=== PATIENT | male | born 1935 | race Caucasian/White ===

== ENCOUNTER 2016-11-10 08:29 | Inpatient (IN) ==
[2016-11-10 11:13] VITALS: BMI 31.4
[2016-11-10] MEDS ORDERED: REFRESH CLASSIC Eye Drops 0.4ml EACH EYE PRN ×2 (11:26→13:00)
--- NOTE | 2016-11-10 11:34 | IRU History & Physical Report ---
HPI U Date: Chief complaint: My ribs and shoulder hurt HPI: Mr. Choe is a very nice 81-year-old male who was transferred from [facility] today to the acute inpatient rehabilitation unit. History is obtained predominantly from the patient and secondarily from the patient's son and daughter who are with him during the interview and examination. Patient was working in a grain bin on 11/08/2016 at his home. He apparently was on a ladder about 3 steps up although does not actually recall being on the ladder. The next thing he recalls is sitting in a chair. Apparently he had called his son on his cell phone but does not actually recall that phone call. The son confirms that he received a call from the patient in this regard. Son came to check on him and it was noted that the ladder had twisted and had made some hinton at the top of the area where it was touching the grain bin. Pratt was that the patient had fallen from a ladder landing on the floor or possibly on an auger. The patient did not recall what happened. He was quite confused and asking repeated questions. His son transported him to the emergency department at [facility] where multiple radiographs and CT scans were obtained. CT of the head was unremarkable. CT of cervical spine showed no abnormalities within the cervical spine. CT chest demonstrated a distal comminuted right clavicular fracture, as well as displaced fractures of the right third, fourth, fifth and sixth ribs. There were also T6 and T7 transverse process fractures. There was some surrounding subcutaneous emphysema and a hemothorax. Because of multiple trauma, the patient was transferred to [facility] where he was admitted to the trauma service by Dr. Delatorre. At that location he was stabilized. Lab work was remarkable for a reported sodium down to 129 (per patient's daughter who is a nurse). Hemoglobin was around 12.6 and creatinine was 0.9. He was evaluated by physical therapy and occupational therapy and recommendation was made for acute rehabilitation in view of his high risk of pulmonary decline, pneumonia as well as for pain management. Other symptoms that the patient currently complains of include severe anorexia over the last couple of days as well as constipation. The patient requests no heroic efforts be undertaken in the event of a cardiac or pulmonary arrest. He does not want any CPR nor intubation. His daughter and son were present when this was discussed with the patient as well. With regard to the initial event, patient was asking repeated questions at the time of the transportation to [facility]. He complained of a headache. He did sustain a laceration to the right scalp area. The patient also displayed retrograde amnesia. However by that evening according to his daughter he was fairly well cleared up mentally speaking. While he has had some falls over the last several months these have all been explainable by tripping over something. He has never had an episode of syncope before. He has never had a heart problem and does not have history of seizures. He was not incontinent of urine. At home he lives with his daughter who lives in the basement. The patient's in April of this year from lung cancer. Patient continues to work as a jj. He is extremely active. He is very motivated to recover from this and get back home to independent living. Prior to admission he was totally independent with ADLs, ambulation etc. The following medical conditions are noted and require physician monitoring and treatment. 1. Acute fractures of right clavicle, right ribs 3-6, transverse processes of T6 and T7. These place him at high risk for acute respiratory failure, pneumonia or pneumothorax. 2. Hemothorax: This places him at risk for respiratory failure, anemia, dyspnea or lung infection/pleural fluid infection. 3. Multiple trauma: This places him at high risk for uncontrolled pain which would hinder his therapies and recovery. 4. Anorexia: Risk of malnutrition and thus infection. 5. Hyponatremia at 129 -->132. Risk of SIADH and thus risk of cognitive dysfunction. 6. Constipation: In view of his pain as well as the pain medication, he is having constipation and would be at risk for further GI problems. The following therapies will be needed: 1. Physical therapy: for transfers and ambulation and stairs. 2. Occupational therapy: for ADL's and transfers. 3. Dietitian: To assist with appropriate food choices and maintenance of adequate nutrition. 4. Medical management: for the above conditions. 5. 24 hour Rehabilitation Nursing to monitor and address the following: Monitoring cognitive function in view of recent head trauma, pulmonary status, vital signs and adequate control of pain. Review of Systems - Constitutional Constitutional: Present: anorexia, fatigue, weakness - EENMT Eyes: Absent: blurry vision, change in vision - Cardiovascular Cardiovascular: Present: syncope. Absent: chest pain, palpitations, dyspnea on exertion, orthopnea Rhythm: Present: regular rhythm Vascular: Absent: intermittent claudication - Respiratory Respiratory: Present: cough, dyspnea, dyspnea on exertion, pain on inspiration. Absent: hemoptysis - Gastrointestinal Gastrointestinal: Present: change in bowel habits, constipation, nausea. Absent : abdominal pain - Genitourinary Genitourinary: Present: difficulty urinating - Musculoskeletal Musculoskeletal: Absent: abnormal gait - Integumentary/Breasts Integumentary: Absent: alopecia - Neurological Neurological: Present: confusion, frequent falls, headache(s). Absent: abnormal gait, abnormal movements, abnormal speech, focal weakness - Psychiatric Psychiatric: Absent: anxiety, depression [facility] Patient Stated Medical History Constipation No Hx Incontinence Yes Clinic Medical History (Last Reviewed 10/18/16 @ 18:52 by Nila Egan CNA) GERD (gastroesophageal reflux disease) (Acute Medical) Hyperlipemia (Acute Medical) Medical History Updates: 1. Gastroesophageal reflux disease for which he takes omeprazole. 2. Hyperlipidemiaon atorvastatin. 3. BPH Surgical History: 1. Tubes in both ear within the last 5 years. 2. Hernia repaired and groin in 1989. 3. Lump discovered on colonoscopybenign and removed about 10-15 years ago. 4. Appendectomy. 5. Left fourth finger laceration and near amputation with full healing. Family History: Father of prostate cancer. Mother at age 98 from heart failure. - Social History Smoking status: Never smoker second hand exposure: No Substance use type: does not use Alcohol intake: never Alcohol intake frequency: does not drink Current occupational status: other (Jj) Does patient use chewing tobacco?: No Current residence: Apartment/Private Home Social history: in April of this year from lung cancer. Daughter lives in the basement currently and drives to [place] to work. Patient is otherwise totally independent and able to care for himself at home. Medications Home Medications Medication Instructions Recorded Confirmed Type Vitamin E 400 unit PO DAILY #0 04/25/10 11/10/16 History Atorvastatin Calcium 10 mg PO HS #0 09/20/15 11/10/16 History Omeprazole 20 mg PO DAILY #90 09/20/15 11/10/16 History Aspirin [Ecotrin] 81 mg PO DAILY 11/08/16 11/10/16 History Finasteride [Proscar] 5 mg PO DAILY 11/08/16 11/10/16 History Acetaminophen 2 tab PO Q4H 11/10/16 11/10/16 History Docusate Sodium [Colace] 1 cap PO BID 11/10/16 11/10/16 History Lidocaine 5% Patch [Lidoderm] 2 patch TRANSDERMA DAILY 11/10/16 11/10/16 History Magnesium Oxide [Magnesium] 1 tab PO BID 11/10/16 11/10/16 History Oxycodone *Ir* [Roxicodone *Ir*] 5 mg PO Q4HPRN PRN 11/10/16 11/10/16 History Refresh Classic 1 drop EACH EYE QIDPRN PRN 11/10/16 11/10/16 History Triamcinolone 0.1% Cream 15 G 1 applic TOP QIDPRN 11/10/16 11/10/16 History Allergies Allergy/AdvReac Type Severity Reaction Status Date / Time No Known Allergies Allergy Verified 11/08/16 14:51 Results IRU - Labs Labs: Outside labs reviewed. Sodium 132. Reportedly 129 previously. Hemoglobin around 12.5. Also reviewed recent CT scans of cervical spine, head and chest. Exam Vital Signs: Temperature 98.0 F 11/10/16 10:22 Pulse Rate 77 11/10/16 10:22 Respiratory Rate 18 11/10/16 10:22 Blood Pressure 149/72 H 11/10/16 10:22 Pulse Oximetry 94 11/10/16 10:22 Oxygen Delivery Method Room Air Height/Weight/BMI: Height 1.78 m Weight 99.2 kg Body Mass Index 31.4 - Constitutional Present: moderate distress - Routine HEENT Exam Head: Present: normocephalic, laceration (sutured laceration right lateral scalp noninflamed 3 simple sutures.). Absent: atraumatic Eye: Present: EOMI, PERRL. Absent: scleral injection ENT: Present: mucous membranes moist - Routine Neck Exam Present: supple, full ROM - Routine Respiratory Exam Present: CTA bilaterally. Absent: accessory muscle use, dyspnea, decreased breath sounds, rhonchi, wheezes - Routine Cardiovascular Exam Present: RRR, S1, S2, no murmur - Routine Abdominal Exam Present: soft, normoactive bowel sounds, non distended, non tender - Routine Extremities Exam Present: no edema, non tender. Absent: cyanosis - Routine Back/Spine/Pelvis Exam Back/Spine: Present: full ROM - Routine Skin Exam Absent: intact, erythema - Routine Neurological Exam Present: alert, oriented X3, CN II-XII intact. Absent: sensory deficit, motor deficit - Routine Psychiatric Exam Present: normal affect, normal thought process, cooperative, good insight, good judgment. Absent: depressed, anxious Sepsis Assessment - Evaluation Sepsis screening result: No Definite Risk IRU A/P (1) Multiple fractures of rib involving four or more ribs Current visit: Yes Status: Acute We will provide pain management, close medical observation and nursing observation for respiratory failure, dyspnea, pneumonia. (2) Closed right clavicular fracture Qualifiers: Encounter type: subsequent encounter Current visit: Yes Status: Acute Has significant pain in the right clavicle. Reduced range of motion for the right shoulder is recommended. (3) Multiple transverse process fractures Current visit: Yes Status: Acute This is of recent onset secondary to his fall. Pain relief will be provided. (4) BPH (benign prostatic hyperplasia) Qualifiers: Lower urinary tract symptom presence: symptoms present Lower urinary tract symptom detail: nocturia Qualified Code(s): N40.1 - Benign prostatic hyperplasia with lower urinary tract symptoms; R35.1 - Nocturia Current visit: Yes Status: Acute Patient is on medication for this. With use of pain medications he is at risk for urinary retention. (5) Hyperlipidemia Qualifiers: Hyperlipidemia type: unspecified Qualified Code(s): E78.5 - Hyperlipidemia , unspecified Current visit: Yes Status: Acute He remains on atorvastatin. (6) Hemothorax, traumatic Qualifiers: Encounter type: subsequent encounter Qualified Code(s): S27.1XXD - Traumatic hemothorax, subsequent encounter Current visit: Yes Status: Acute Patient was noted to have traumatic hemothorax on CT scan of the chest. This is some dyspnea with activity. He is at risk for infection in this area as well as further bleeding in view of his multiple fractures. DVT Prophylaxis: SCD's, Lovenox GI Prophylaxis: Protonix Resuscitation Status: Do Not Resuscitate - Course Hospital Course: Jayme Quinn MD: - Interventions to Obtain Goals PT Treatment Plan: Functional Activities, Gait Training OT Treatment Plan: ADL (Basic Care), IADL Goals Progress/Modifications: Patient is a good candidate for inpatient acute rehabilitation. It is anticipated he will have full functional recovery and be able to return home independently.
--- NOTE | 2016-11-10 12:13 | IRU 24Hr Post Admit Eval ---
24 Hr Post Admission Physical - Relevant Changes Relevant Changes: No Reviewed: I have reviewed the patient's information and concur with the finding and results of the pre-admission screen. Certification: I certify the patient for rehabilitation. - Patient Condition (1) Multiple fractures of rib involving four or more ribs Status: Acute Code(s): S22.49XA - Multiple fractures of ribs, unspecified side , initial encounter for closed fracture Classification: Present on IRF Admission, IRF Tx That Should Address Diagnosis, Diagnosis Requiring Medical Follow Up (2) Closed right clavicular fracture Status: Acute Qualifiers: Encounter type: subsequent encounter Code(s): S42.001A - Fracture of unspecified part of right clavicle, initial encounter for closed fracture Classification: Present on IRF Admission, IRF Tx That Should Address Diagnosis, Diagnosis Requiring Medical Follow Up (3) Multiple transverse process fractures Status: Acute Classification: Present on IRF Admission, Diagnosis Requiring Medical Follow Up (4) BPH (benign prostatic hyperplasia) Status: Acute Qualifiers: Lower urinary tract symptom presence: symptoms present Lower urinary tract symptom detail: nocturia Qualified Code(s): N40.1 - Benign prostatic hyperplasia with lower urinary tract symptoms; R35.1 - Nocturia Code(s): N40.0 - Benign prostatic hyperplasia without lower urinary tract symptoms Classification: Present on IRF Admission, Diagnosis Requiring Medical Follow Up (5) Hyperlipidemia Status: Acute Qualifiers: Hyperlipidemia type: unspecified Qualified Code(s): E78.5 - Hyperlipidemia , unspecified Code(s): E78.5 - Hyperlipidemia, unspecified Classification: Present on IRF Admission, Diagnosis Requiring Medical Follow Up (6) Hemothorax, traumatic Status: Acute Qualifiers: Encounter type: subsequent encounter Qualified Code(s): S27.1XXD - Traumatic hemothorax, subsequent encounter Code(s): S27.1XXA - Traumatic hemothorax, initial encounter Classification: Present on IRF Admission, IRF Tx That Should Address Diagnosis, Diagnosis Requiring Medical Follow Up - Prior Functional Status Lives With: Other (Daugter lives in basement. Patient is independent at home) Residence Type: Apartment/Private Home Assitive Devices: None Prior Functional Status: Indep. at home or school, Used no assistive device - Current Functional Status Failed Alternative Therapy: Arrived from Acute Care Patient Requirements: The patient requires oversight by rehabilitation physician to manage their rehabilitation treatment plan and multidisciplinary approach to care that can only be provided in an IRF and requires a multidisciplinary approach to care, provided by professional PTs, OTs, STs, dieticians, RTs, rehabilitation nurses and is not available in lesser levels of care. Limitiations Req: ADL Impairment Physical Therapy Minutes: 90 Occupational Therapy Minutes: 90 Therapy: The patient is to receive therapy at least 5 days a week. ROM Deficit: Right Upper Extremity - Complications/Comorbidities Impact on Functional Outcomes: Severe pain in the right clavicle and right ribs will impact his therapy. Dyspnea with activity also may be an impact on his functional recovery. Barriers to Discharge: Pain Control, Medical Limitation - Plan to Avoid Complications Plan to Avoid Complications: The patient cannot receive this care in a lesser intensive setting such as [facility] or Outpatient Therapy due to the patient requiring the following : He requires 24-hour nursing monitoring as well as medical management of his multiple rib fracture pain, clavicular pain, hemothorax which places him at risk for acute respiratory failure, infection or pneumonia.
--- NOTE | 2016-11-10 12:16 | IRU Plan of Care ---
[facility] Overall Plan of Care - Date Date: 11/10/16 - Patient Impairments (1) Multiple fractures of rib involving four or more ribs Code(s): S22.49XA - Multiple fractures of ribs, unspecified side, initial encounter for closed fracture Status: Acute Classification: Present on IRF Admission, IRF Tx That Should Address Diagnosis, Diagnosis Requiring Medical Follow Up (2) Closed right clavicular fracture Qualifiers: Encounter type: subsequent encounter Code(s): S42.001A - Fracture of unspecified part of right clavicle, initial encounter for closed fracture Status: Acute Classification: Present on IRF Admission, IRF Tx That Should Address Diagnosis, Diagnosis Requiring Medical Follow Up (3) Multiple transverse process fractures Status: Acute Classification: Present on IRF Admission, Diagnosis Requiring Medical Follow Up (4) BPH (benign prostatic hyperplasia) Qualifiers: Lower urinary tract symptom presence: symptoms present Lower urinary tract symptom detail: nocturia Qualified Code(s): N40.1 - Benign prostatic hyperplasia with lower urinary tract symptoms; R35.1 - Nocturia Code(s): N40.0 - Benign prostatic hyperplasia without lower urinary tract symptoms Status: Acute Classification: Present on IRF Admission, Diagnosis Requiring Medical Follow Up (5) Hyperlipidemia Qualifiers: Hyperlipidemia type: unspecified Qualified Code(s): E78.5 - Hyperlipidemia , unspecified Code(s): E78.5 - Hyperlipidemia, unspecified Status: Acute Classification: Present on IRF Admission, Diagnosis Requiring Medical Follow Up (6) Hemothorax, traumatic Qualifiers: Encounter type: subsequent encounter Qualified Code(s): S27.1XXD - Traumatic hemothorax, subsequent encounter Code(s): S27.1XXA - Traumatic hemothorax, initial encounter Status: Acute Classification: Present on IRF Admission, IRF Tx That Should Address Diagnosis, Diagnosis Requiring Medical Follow Up - Relevant Changes Relevant Changes: No Reviewed: I have reviewed the patient's information and concur with the finding and results of the pre-admission screen. Certification: I certify the patient for rehabilitation. - Medical Prognosis Medical Prognosis: Good Vital Signs: Last Vital Signs Temp 98.0 F 11/10/16 10:22 Pulse 77 11/10/16 10:22 Resp 18 11/10/16 10:22 BP 149/72 H 11/10/16 10:22 Pulse Ox 94 11/10/16 10:22 - Anticipated Interventions Anticipated Interventions: The patient requires inpatient IRF care for PT, OT, and/or ST for residuals remaining from multiple trauma including 4 rib fractures, right clavicular comminuted fracture and two spinous process fractures resulting in muscular weakness and strength deficits. ROM Deficit: Right Upper Extremity Strength Deficits: Right Upper Extremity - Current Functional Status Failed Alternative Therapy: Arrived from Acute Care Patient Requires: The patient requires oversight by rehabilitation physician to manage their rehabilitation treatment plan and multidisciplinary approach to care that can only be provided in an IRF and requires a multidisciplinary approach to care, provided by professional PTs, OTs, STs, dieticians, RTs, rehabilitation nurses and is not available in lesser levels of care. Physical Therapy Minutes: 90 Occupational Therapy Minutes: 90 Therapy: The patient is to receive therapy at least 5 days a week. - Anticipated LOS/Outcomes Anticipated Functional Outcome: It is anticipated the patient will have full functional recovery and be independent with all ADLs at home. There is the possibility that he will require some assistance with upper extremity dressing until range of motion can be improved with fracture healing. Anticipated Length of Stay: 7 Anticipated DC Destination: Home, Self Longterm Safety Plan: The patient will be provided with the development of a Home Safety Plan for return to a home or home-like environment and and to ensure safety post discharge. - Plan to Avoid Complications Barriers to Attaining Goals: Weakness, Endurance, Pain Control Plan to Avoid Complications: The patient cannot receive this care in a lesser intensive setting such as [facility] or Outpatient Therapy due to the patient requiring the following : He requires 24-hour nursing monitoring as well as medical management of his multiple rib fracture pain, clavicular pain, hemothorax which places him at risk for acute respiratory failure, infection or pneumonia. .
[2016-11-10] MEDS: ACETAMINOPHEN 325 MG TABLET PO SCH ×2 (14:10→22:06)
--- NOTE | 2016-11-10 14:33 | Consult Note ---
<Isis Alvarez Treva - Last Filed: 11/10/16 14:29> Consult Information - Data of Consult Patient: new to practice Consult date: 11/10/16 Requesting Physician: Jayme Quinn MD Primary Care Provider: Richi Gibbs MD Family Provider: Richi Gibbs MD - Consult Narrative Reason for consult: Hyponatremia History of present illness: Raul Choe is seen in consultation from Dr. Quinn for medical management of respiratory stability s/p multiple rib fx and hyponatremia. Mr. Choe fell off a ladder (uncertain height) while working on a grain bin at home on 11/08/16. He was able to contact his son, who took him to [facility]. The patient was confused at that time but head CT was negative for acute findings. Additional CTs showed right clavicle rx; displaced fx of right 3-7 ribs and a small hemothorax and or edema. He was also noted to have T6-T7 transverse process fx. He was transferred as a level 2 trauma to [facility]. During his time there, Na decreased slightly to 129 and free water was restricted. Leukocytosis was thought to be reactive. A laceration to his right jehovah's witness was repaired. His clavicle fx was treated nonoperatively. Pain control was achieved with oxy 5 mg and Tylenol. He remained neurovascularly stable. He was able to be discharged from [facility] on and was admitted to IRU. Mr. Hernández was seen after working with therapy. He complains of tiredness and fatigue. He notes constipation and hasn't had a bowel movement x2 days. He doesn 't normally have problems with constipation. He denies feeling SOA at rest but this will occur with exertion. He reports a mild cough, and when he lies flat sometimes his sputum "goes down the wrong pipe". He had a headache initially but that has resolved. He denies unilateral weakness, paresthesias. He denies urinary changes. 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 He states that he cries frequently, and it helps him feel better. PFSH GERD (gastroesophageal reflux disease) (Acute Medical) Hyperlipemia (Acute Medical) Gastroesophageal reflux disease BPH Sensorineural hearing loss Surgical History: 1. Tubes in both ear within the last 5 years. 2. Hernia repaired around 1989. 3. Lump discovered on colonoscopybenign and removed about 10-15 years ago. 4. Appendectomy 05/2006. 5. Left fourth finger laceration and near amputation with full healing. 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 Absent: change in vision Ears: Present: ear pain (recent swimmer's ear - symptoms much improved) Balance: Absent: vertigo Mouth/Throat: Present: changes in swallowing ("sputum goes down the wrong pipe" - chronic). Absent: sore throat - Cardiovascular Cardiovascular: Present: dyspnea on exertion. Absent: chest pain, orthopnea Rhythm: Present: regular rhythm Vascular: Present: intermittent claudication. Absent: pedal edema - Respiratory Respiratory: Present: cough, dyspnea - Gastrointestinal Gastrointestinal: Present: constipation. Absent: abdominal pain, diarrhea, nausea - Genitourinary Genitourinary: Absent: urinary incontinence - Musculoskeletal Musculoskeletal: Present: as per HPI - Integumentary/Breasts Integumentary: Present: wounds - Neurological Neurological: Present: confusion (poor recollection of traumatic event), headache(s) (resolved). 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; and losing his of 57 years in Apr 2016) - Hematologic/Lymphatic Hematologic/Lymphatic: Absent: easy bruising - Allergic/Immunologic Allergic/Immunologic: Absent: seasonal rhinorrhea Medications Home Medications Medication Instructions Recorded Confirmed Type Vitamin E 400 unit PO DAILY #0 04/25/11/10/16 History Atorvastatin Calcium 10 mg PO HS #0 09/20/15 11/10/16 History Omeprazole 20 mg PO DAILY #90 09/20/15 11/10/16 History Aspirin [Ecotrin] 81 mg PO DAILY 11/08/16 11/10/16 History Finasteride [Proscar] 5 mg PO DAILY 11/08/16 11/10/16 History Acetaminophen 2 tab PO Q4H 11/10/16 11/10/16 History Docusate Sodium [Colace] 1 cap PO BID 11/10/16 11/10/16 History Lidocaine 5% Patch [Lidoderm] 2 patch TRANSDERMA DAILY 11/10/16 11/10/16 History Magnesium Oxide [Magnesium] 1 tab PO BID 11/10/16 11/10/16 History Oxycodone *Ir* [Roxicodone *Ir*] 5 mg PO Q4HPRN PRN 11/10/16 11/10/16 History Refresh Classic 1 drop EACH EYE QIDPRN PRN 11/10/16 11/10/16 History Triamcinolone 0.1% Cream 15 G 1 applic TOP QIDPRN 11/10/16 11/10/16 History Allergies Allergy/AdvReac Type Severity Reaction Status Date / Time No Known Allergies Allergy Verified 11/08/16 14:51 Exam Vital Signs: Temperature 98.0 F 11/10/16 10:22 Pulse Rate 77 11/10/16 12:45 Respiratory Rate 18 11/10/16 12:45 Blood Pressure 149/72 H 11/10/16 10:22 Pulse Oximetry 94 11/10/16 12:45 Oxygen Delivery Method Room Air Height/Weight/BMI: Height 1.78 m Weight 99.2 kg Body Mass Index 31.4 - Constitutional Present: no acute distress, well nourished, well developed, obese - Routine HEENT Exam Head: Present: abrasion (and contusion - scalp; right ear), laceration (right parietal scalp). Absent: atraumatic Eye: Present: PERRL. Absent: conjunctival icterus, scleral injection ENT: Present: oropharynx clear, dentition normal - Routine Neck Exam Present: supple. Absent: lymphadenopathy - Routine Respiratory Exam Present: decreased breath sounds - Routine Cardiovascular Exam Present: RRR, S1, S2 - Routine Abdominal Exam Present: soft, normoactive bowel sounds, non distended, non tender - Routine Extremities Exam Present: no edema, pulses intact, normal capillary refill - Routine Back/Spine/Pelvis Exam Back/Spine: Present: vertebral tenderness (mid thoracic) - Routine Skin Exam Present: dry, warm - Routine Neurological Exam Present: alert, oriented X3, CN II-XII intact, vision grossly intact, normal speech. Absent: sensory deficit, motor deficit, abnormal gait (slow gait but ambulates well and seems to have good safety awareness), hearing grossly intact (CHENEGA b/l but worse on left), fasciculations - Routine Psychiatric Exam Present: normal thought process, cooperative, good judgment. Absent: normal affect (slightly flat & depressed) Assessment and Plan (1) Multiple fractures of rib involving four or more ribs Current visit: Yes Status: Acute (2) Closed right clavicular fracture Current visit: Yes Status: Acute (3) Multiple transverse process fractures Current visit: Yes Status: Acute (4) Hemothorax, traumatic Current visit: Yes Status: Acute DVT Prophylaxis: Lovenox GI Prophylaxis: Protonix Resuscitation Status: Do Not Resuscitate Assessment and Plan: Impression S/P trauma Rt clavicle fx Rt small hemothorax w/ rt rib fx #4-7 T6-T7 transverse process fx right temporal lac - sutures placed 11/09/16 GERD HLD Sensorineural hearing loss BPH Obesity Plan S/P trauma Rt clavicle fx - cont sling; NWB; F/U with Dr. Chapa at [facility] in 1 week Rt small hemothorax w/ rt rib fx #4-7; F/U with [facility] Trauma Dept in 2 weeks. Push IS. T6-T7 transverse process fx - supportive care. No focal neuro deficits. Hyponatremia - improved to 132. Continue free water restriction and if Na improves on labs in am, will likely lift restriction. Dysphagia - consult speech. lac right parietal - sutures placed 11/09/16 Constipation - PRNs available. Monitor closely for depression. Thank you for this consult. We will follow Mr. Choe with you during his course on IRU. Hospital Course Summary Disclaimer: The visit summary below is not to be considered part of the above Progress Note. Hospital Course: 11/10/16 S/P trauma Rt clavicle fx - cont sling; NWB; F/U with Dr. Chapa at [facility] in 1 week Rt small hemothorax w/ rt rib fx #4-7; F/U with [facility] Trauma Dept in 2 weeks. Push IS. T6-T7 transverse process fx - supportive care. No focal neuro deficits. Hyponatremia - improved to 132. Continue free water restriction and if Na improves on labs in am, will likely lift restriction. Dysphagia - consult speech. lac right parietal - sutures placed 11/09/16 Constipation - PRNs available. Monitor closely for depression. Sepsis Assessment - Evaluation Sepsis screening result: No Definite Risk <Palomo Eid - Last Filed: 11/10/16 16:54> Consult Information - Data of Consult Requesting Physician: Jayme Quinn MD Primary Care Provider: Richi Gibbs MD Family Provider: Richi Gibbs MD [facility] Patient Stated Medical History Constipation No Hx Incontinence Yes Clinic Medical History (Last Reviewed 10/18/16 @ 18:52 by Nila Egan CNA) GERD (gastroesophageal reflux disease) (Acute Medical) Hyperlipemia (Acute Medical) Exam Vital Signs: Temperature 97.9 F 11/10/16 16:00 Pulse Rate 79 11/10/16 16:00 Respiratory Rate 18 11/10/16 16:00 Blood Pressure 161/75 H 11/10/16 16:00 Pulse Oximetry 94 11/10/16 16:00 Oxygen Delivery Method Room Air Height/Weight/BMI: Height 1.78 m Weight 99.2 kg Body Mass Index 31.4 Assessment and Plan (1) Multiple fractures of rib involving four or more ribs Current visit: Yes Status: Acute (2) Closed right clavicular fracture Current visit: Yes Status: Acute (3) Multiple transverse process fractures Current visit: Yes Status: Acute (4) Hemothorax, traumatic Current visit: Yes Status: Acute Assessment and Plan: Impression S/P trauma Rt clavicle fx Rt small hemothorax w/ rt rib fx #4-7 T6-T7 transverse process fx Right temporal lac - sutures placed 11/09/16 Hypnonatremia GERD HLD Sensorineural hearing loss BPH Obesity Have independently interviewed and examined pt. Chart reviewed. Case discussed with my BILLET CUTTER. Above care plan developed with my supervision; agree with above. Admitted to IRU secondary to fall trauma with multiple injuries. Does report pain, but currently controlled. Able to work with therapy today-tired secondary. Denies nausea or ab pain. Stools slow. Notes pain with breathing only with fast/deep breath or with cough. Not feeling SOA or congested. Lungs: decreased, no distress on RA CV: regular AB: soft obese nt/nd +BS MSE: awake alert appropriate Plan: Agree with admission of patient to IRU to maximize functional status. Continue IS, encourage deep breathing, monitor respiratory status. Continue pain control. Work on bowel function. Continue free water restriction due to hyponatremia, monitoring lab. SCD and Lovenox for DVT prevention. Home meds continued. Encourage patient on working with therapy to maximize his strength and functional status. Medically stable for IRU floor care and activities. Hospital Course Summary Disclaimer: The visit summary below is not to be considered part of the above Progress Note.
[2016-11-10] MEDS: Oxycodone *IR* 5 MG TABLET PO PRN ×2 (15:26→19:42)
[2016-11-10] MEDS: MAGNESIUM OXIDE 400 MG TABLET PO SCH (22:06)
[2016-11-10] MEDS: ATORVASTATIN 10 MG TABLET PO SCH (22:06)
[2016-11-10] MEDS: DOCUSATE SODIUM 100 MG CAPSULE PO SCH (22:08)
[2016-11-10] MEDS: Oxycodone *IR* 5 MG TABLET PO SCH (22:11)
[2016-11-11] MEDS: Oxycodone *IR* 5 MG TABLET PO PRN ×3 (03:17→12:40)
[2016-11-11] MEDS: OMEPRAZOLE 20 MG CAPSULE PO SCH ×2 (04:37→06:21)
[2016-11-11] MEDS: DOCUSATE SODIUM 100 MG CAPSULE PO SCH ×2 (08:53→20:43)
[2016-11-11] MEDS: ASPIRIN *EC* 81 MG TABLET PO SCH (08:54)
[2016-11-11] MEDS: MAGNESIUM OXIDE 400 MG TABLET PO SCH ×2 (08:54→20:43)
[2016-11-11] MEDS: FINASTERIDE 5 MG TABLET PO SCH (08:54)
[2016-11-11] MEDS: ACETAMINOPHEN 325 MG TABLET PO SCH ×3 (08:55→20:49)
[2016-11-11] MEDS: VITAMIN E 400 UNIT CAPSULE PO SCH (08:55)
[2016-11-11] MEDS: Oxycodone *IR* 5 MG TABLET PO SCH ×4 (08:57→23:37)
[2016-11-11] MEDS: LIDOCAINE 5% PATCH TOP SCH (12:35)
[2016-11-11] MEDS: ENOXAPARIN 40 MG/0.4 ML INJECTION SQ SCH (12:35)
[2016-11-11] MEDS ORDERED: ARTIFICIAL TEARS 15ml EACH EYE PRN (14:09)
[2016-11-11] MEDS ORDERED: Oxycodone *IR* 5 MG TABLET PO PRN (14:09)
--- NOTE | 2016-11-11 14:35 | Progress Note ---
Subjective: Raul was going through mail with his daughter and her . He stated that he's having a hard time staying on top of pain - he forgets to ask for his pain medication until it's too late. His daughter suggested scheduling his oxycodone for now, at least until his pain improves. He had a difficult time sleeping last night - woke up at 3 am in quite a bit of pain and had difficulty going back to sleep. He's still constipated. His daughter brought him prunes and raisins. He's on Colace but we added MiraLAX plus PRNs. He told me we have to keep an eye on his right lung (he recalled that there was a small amount of blood in it). He demonstrated use of the IS. He denied any difficulty breathing or SOA. No abdominal pain or nausea. He is sick of drinking Powerade and asked about his sodium level (135). We discussed why we want to maintain a normal sodium level. Objective Vital signs: Temperature 97.9 F 11/11/16 08:00 Pulse Rate 82 11/11/16 08:00 Respiratory Rate 16 11/11/16 08:00 Blood Pressure 178/92 H 11/11/16 08:00 Pulse Oximetry 90 11/11/16 08:00 Oxygen Delivery Method Room Air Height/Weight/BMI: Height 1.78 m Weight 99.2 kg Body Mass Index 31.4 - Constitutional Present: no acute distress, well nourished, well developed - Routine HEENT Exam ENT: Present: mucous membranes moist, oropharynx clear - Routine Respiratory Exam Present: diminished air movement (slightly decreased but clear) - Routine Cardiovascular Exam Present: RRR, S1, S2 - Routine Abdominal Exam Present: soft, non distended, non tender. Absent: normoactive bowel sounds ( hyperactive) - Routine Extremities Exam Present: no edema, pulses intact, normal capillary refill - Routine Musculoskeletal Exam Musculoskeletal: Present: limited range of motion (right arm in sling - clavicle fx) - Routine Skin Exam Present: intact, warm - Routine Neurological Exam Present: alert, oriented X3, CN II-XII intact, normal speech - Routine Psychiatric Exam Present: normal affect (became tearful once while talking about his ), normal thought process, cooperative Results - Labs CBC & Chem 7: 11/11/16 04:10 11/11/16 04:10 Assessment and Plan (1) Multiple fractures of rib involving four or more ribs Current visit: Yes Status: Acute (2) Closed right clavicular fracture Current visit: Yes Status: Acute (3) Multiple transverse process fractures Current visit: Yes Status: Acute (4) Hemothorax, traumatic Current visit: Yes Status: Acute DVT Prophylaxis: Lovenox Resuscitation Status: Do Not Resuscitate Assessment and Plan: Impression S/P trauma Rt clavicle fx Rt small hemothorax w/ rt rib fx #4-7 T6-T7 transverse process fx Right temporal lac - sutures placed 11/09/16 Hypnonatremia - resolved GERD HLD Sensorineural hearing loss BPH Obesity Constipation Plan Lift free water restriction. May have water but with 1500 ml/day restriction. Recheck BMP on 11/13. Pain is a big issue - I increased oxycodone to q4h while awake, but we will need to monitor closely for side effects (ie somnolence, reduced respirations). May need to reduce frequency. I also scheduled Tylenol as a QID medication. Continue IS - will obtain CXR in am to f/u on rib fx and small hemothorax. Constipation - add MiraLAX daily; PRN MOM and dulcolax suppository. Emotional support provided. Sepsis Assessment - Evaluation Sepsis screening result: No Definite Risk Hospital Course Summary Disclaimer: The visit summary below is not to be considered part of the above Progress Note. Hospital Course: 11/10/16 S/P trauma Rt clavicle fx - cont sling; NWB; F/U with Dr. Chapa at [facility] in 1 week Rt small hemothorax w/ rt rib fx #4-7; F/U with [facility] Trauma Dept in 2 weeks. Push IS. T6-T7 transverse process fx - supportive care. No focal neuro deficits. Hyponatremia - improved to 132. Continue free water restriction and if Na improves on labs in am, will likely lift restriction. Dysphagia - consult speech. lac right parietal - sutures placed 11/09/16 Constipation - PRNs available. Monitor closely for depression. 11/11/16 Lift free water restriction. May have water but with 1500 ml/day restriction. Recheck BMP on 11/13. Pain is a big issue - I increased oxycodone to q4h while awake, but we will need to monitor closely for side effects (ie somnolence, reduced respirations). May need to reduce frequency. I also scheduled Tylenol as a QID medication. Continue IS - will obtain CXR in am to f/u on rib fx and small hemothorax. Constipation - add MiraLAX daily; PRN MOM and dulcolax suppository.
[2016-11-11] MEDS: POLYETHYL GLYCOL 3350 17gm PACKET PO SCH (15:57)
[2016-11-11] MEDS: CALCITONIN NASAL SPRAY 3.7ml NS SCH (19:00)
[2016-11-11] MEDS: ATORVASTATIN 10 MG TABLET PO SCH (20:43)
[2016-11-12] MEDS: Oxycodone *IR* 5 MG TABLET PO SCH ×4 (05:21→14:36)
[2016-11-12] MEDS: OMEPRAZOLE 20 MG CAPSULE PO SCH ×2 (05:25→09:07)
[2016-11-12] MEDS: VITAMIN E 400 UNIT CAPSULE PO SCH (08:54)
[2016-11-12] MEDS: FINASTERIDE 5 MG TABLET PO SCH (08:55)
[2016-11-12] MEDS: CALCITONIN NASAL SPRAY 3.7ml NS SCH (08:55)
[2016-11-12] MEDS: ACETAMINOPHEN 325 MG TABLET PO SCH ×4 (08:55→21:09)
[2016-11-12] MEDS: MAGNESIUM OXIDE 400 MG TABLET PO SCH ×2 (08:56→21:11)
[2016-11-12] MEDS: DOCUSATE SODIUM 100 MG CAPSULE PO SCH (08:56)
[2016-11-12] MEDS: ASPIRIN *EC* 81 MG TABLET PO SCH (08:56)
[2016-11-12] MEDS: POLYETHYL GLYCOL 3350 17gm PACKET PO SCH (08:57)
[2016-11-12] MEDS: LIDOCAINE 5% PATCH TOP SCH (09:26)
[2016-11-12] MEDS ORDERED: AMLODIPINE 2.5 MG TABLET PO ONE (10:59)
--- NOTE | 2016-11-12 10:59 | XRay Report ---
INDICATION: f/u rib fx, hemothorax on right PROCEDURE: CHEST 2-VIEWS UPRIGHT (PA & LAT) Encounter: None COMPARISON: November 08, 2016 FINDINGS: Small bilateral pleural effusions are similar to the comparison exam. No pneumothorax. Mild lower lobe airspace opacities probably due to atelectasis. Heart size and mediastinal contours are stable. Multiple right rib fractures. Impression: Stable small pleural effusions and basilar atelectasis. .
[2016-11-12] MEDS: CALCIUM 600 + VIT D 400 TABLET PO SCH (11:15)
[2016-11-12] MEDS: ENOXAPARIN 40 MG/0.4 ML INJECTION SQ SCH (11:15)
[2016-11-12] MEDS ORDERED: Bisacodyl EC TAB 5 MG TABLET PO ONE (14:40)
--- NOTE | 2016-11-12 14:48 | Progress Note ---
Subjective: Raul is seen today in follow up. He reports that he continues to have severe right shoulder pain. Denies radiation into the neck or hand. No numbness or pain in the hand. No pain with moving his neck around. He also reports some severe constipation- no BM since his initial injury. No N/V. Chart is reviewed for collateral information. Objective Vital signs: Temperature 97.5 F 11/12/16 08:00 Pulse Rate 78 11/12/16 08:00 Respiratory Rate 20 11/12/16 08:00 Blood Pressure 171/97 H 11/12/16 08:00 Pulse Oximetry 95 11/12/16 08:00 Oxygen Delivery Method Room Air Height/Weight/BMI: Height 1.78 m Weight 102.1 kg Body Mass Index 31.4 - Constitutional Present: no acute distress, well nourished, well developed, cooperative - Routine HEENT Exam Head: Present: normocephalic, atraumatic Eye: Present: EOMI, PERRL, normal accommodation ENT: Present: mucous membranes moist - Routine Respiratory Exam Present: CTA bilaterally. Absent: dyspnea, wheezes, crackles - Routine Cardiovascular Exam Present: RRR, S1, S2, no murmur - Routine Abdominal Exam Present: soft, non tender, distended. Absent: normoactive bowel sounds (Quiet BS x 4 quadrants) - Routine Extremities Exam Present: no edema, tenderness. Absent: full ROM Comments: Right arm in sling. Right shoulder very TTP. Right hand is warm, fingers with full ROM. - Routine Back/Spine/Pelvis Exam Back/Spine: Present: full ROM - Routine Musculoskeletal Exam Musculoskeletal: Present: no clubbing or cyanosis, limited range of motion ( Right shoulder as above. ) - Routine Skin Exam Present: dry, warm - Routine Neurological Exam Present: alert, oriented X3 - Routine Psychiatric Exam Present: normal affect, cooperative Results - Labs CBC & Chem 7: 11/11/16 04:10 11/11/16 04:10 Assessment and Plan (1) Multiple fractures of rib involving four or more ribs Current visit: Yes Status: Acute (2) Closed right clavicular fracture Current visit: Yes Status: Acute (3) Multiple transverse process fractures Current visit: Yes Status: Acute (4) Hemothorax, traumatic Current visit: Yes Status: Acute DVT Prophylaxis: Lovenox GI Prophylaxis: Protonix Resuscitation Status: Do Not Resuscitate Assessment and Plan: Impression S/P trauma Rt clavicle fx (To follow up with ortho in 1 week). Rt small hemothorax w/ rt rib fx #4-7 T6-T7 transverse process fx Right temporal lac - sutures placed 11/09/16 Hyponatremia - resolved GERD HLD Sensorineural hearing loss BPH Obesity Constipation Grief from recent loss of . Plan 11/12/16- Labs have been fairly stable. Will repeat in AM. Pain is major issue- he does have lidocaine patch applied to site. Add low dose Gabapentin. Pain is not much better on scheduled oxycodone. Will change to Percocet PRN due to severe constipation. Will schedule Tramadol and Decrease APAP to 325mg PO TID. Monitor for side effects. For constipation, change Colace to Senna-S BID. Add Dulcolax PO x 1 now and PRN AL dosing. May need to add Lactulose for constipation. He needs to follow up with ortho next week. BP has been running high- pt. states this is due to pain. Added Norvasc low dose today- will start Norvasc 5mg tomorrow. - Time spent with patient 25 - 35 minutes Sepsis Assessment - Evaluation Sepsis screening result: No Definite Risk Hospital Course Summary Disclaimer: The visit summary below is not to be considered part of the above Progress Note. Hospital Course: 11/10/16 S/P trauma Rt clavicle fx - cont sling; NWB; F/U with Dr. Chapa at [facility] in 1 week Rt small hemothorax w/ rt rib fx #4-7; F/U with [facility] Trauma Dept in 2 weeks. Push IS. T6-T7 transverse process fx - supportive care. No focal neuro deficits. Hyponatremia - improved to 132. Continue free water restriction and if Na improves on labs in am, will likely lift restriction. Dysphagia - consult speech. lac right parietal - sutures placed 11/09/16 Constipation - PRNs available. Monitor closely for depression. 11/11/16 Lift free water restriction. May have water but with 1500 ml/day restriction. Recheck BMP on 11/13. Pain is a big issue - I increased oxycodone to q4h while awake, but we will need to monitor closely for side effects (ie somnolence, reduced respirations). May need to reduce frequency. I also scheduled Tylenol as a QID medication. Continue IS - will obtain CXR in am to f/u on rib fx and small hemothorax. Constipation - add MiraLAX daily; PRN MOM and dulcolax suppository. 11/12/16 14:55 Labs have been fairly stable. Will repeat in AM. Pain is major issue- he does have lidocaine patch applied to site. Add low dose Gabapentin. Pain is not much better on scheduled oxycodone. Will change to Percocet PRN due to severe constipation. Will schedule Tramadol and Decrease APAP to 325mg PO TID. Monitor for side effects. For constipation, change Colace to Senna-S BID. Add Dulcolax PO x 1 now and PRN AL dosing. May need to add Lactulose for constipation. He needs to follow up with ortho next week. BP has been running high- pt. states this is due to pain. Added Norvasc low dose today- will start Norvasc 5mg tomorrow.
[2016-11-12] MEDS: GABAPENTIN 100 MG CAPSULE PO SCH ×3 (15:21→21:08)
[2016-11-12] MEDS: TRAMADOL 50 MG TABLET PO SCH ×2 (16:17→21:08)
[2016-11-12] MEDS: SENNA + DOCUSATE TABLET PO SCH ×2 (16:18→21:08)
[2016-11-12] MEDS: BISACODYL 10 MG SUPPOSITORY RECTALLY PRN (19:52)
[2016-11-12] MEDS: ATORVASTATIN 10 MG TABLET PO SCH (21:08)
[2016-11-12] MEDS ORDERED: FALL RISK - PHARMACY CONSULT MC PRN (21:26)
[2016-11-12] MEDS: LIDOCAINE PATCH REMOVAL TOP SCH (23:38)
[2016-11-13] MEDS: OXYCODONE/APAP 7.5 MG/325 MG TABLET PO PRN ×4 (02:45→17:30)
[2016-11-13] MEDS: OMEPRAZOLE 20 MG CAPSULE PO SCH (06:31)
[2016-11-13] MEDS: ASPIRIN *EC* 81 MG TABLET PO SCH (08:47)
[2016-11-13] MEDS: ENOXAPARIN 40 MG/0.4 ML INJECTION SQ SCH (08:47)
[2016-11-13] MEDS: CALCIUM 600 + VIT D 400 TABLET PO SCH (08:47)
[2016-11-13] MEDS: GABAPENTIN 100 MG CAPSULE PO SCH ×3 (08:48→21:54)
[2016-11-13] MEDS: AMLODIPINE 5 MG TABLET PO SCH (08:48)
[2016-11-13] MEDS: CALCITONIN NASAL SPRAY 3.7ml NS SCH (08:48)
[2016-11-13] MEDS: POLYETHYL GLYCOL 3350 17gm PACKET PO SCH (08:48)
[2016-11-13] MEDS: VITAMIN E 400 UNIT CAPSULE PO SCH (08:49)
[2016-11-13] MEDS: SENNA + DOCUSATE TABLET PO SCH ×2 (08:49→21:54)
[2016-11-13] MEDS: FINASTERIDE 5 MG TABLET PO SCH (08:49)
[2016-11-13] MEDS: ACETAMINOPHEN 325 MG TABLET PO SCH ×3 (08:53→21:56)
[2016-11-13] MEDS: TRAMADOL 50 MG TABLET PO SCH ×3 (08:53→21:57)
[2016-11-13] MEDS: MAGNESIUM OXIDE 400 MG TABLET PO SCH ×2 (09:13→21:54)
[2016-11-13] MEDS: LIDOCAINE 5% PATCH TOP SCH (09:13)
[2016-11-13] MEDS: BISACODYL 10 MG SUPPOSITORY RECTALLY PRN (16:03)
[2016-11-13] MEDS: ATORVASTATIN 10 MG TABLET PO SCH (21:53)
[2016-11-13] MEDS: LIDOCAINE PATCH REMOVAL TOP SCH (21:57)
[2016-11-14] MEDS: OMEPRAZOLE 20 MG CAPSULE PO SCH ×2 (05:07→05:48)
[2016-11-14] MEDS: BISACODYL 10 MG SUPPOSITORY RECTALLY PRN (05:08)
[2016-11-14] MEDS: GABAPENTIN 100 MG CAPSULE PO SCH ×3 (08:27→20:25)
[2016-11-14] MEDS: MAGNESIUM OXIDE 400 MG TABLET PO SCH ×2 (08:27→20:25)
[2016-11-14] MEDS: CALCIUM 600 + VIT D 400 TABLET PO SCH (08:27)
[2016-11-14] MEDS: ASPIRIN *EC* 81 MG TABLET PO SCH (08:27)
[2016-11-14] MEDS: ENOXAPARIN 40 MG/0.4 ML INJECTION SQ SCH (08:27)
[2016-11-14] MEDS: SENNA + DOCUSATE TABLET PO SCH ×2 (08:27→20:26)
[2016-11-14] MEDS: CALCITONIN NASAL SPRAY 3.7ml NS SCH (08:28)
[2016-11-14] MEDS: POLYETHYL GLYCOL 3350 17gm PACKET PO SCH ×2 (08:28→20:25)
[2016-11-14] MEDS: LIDOCAINE 5% PATCH TOP SCH (08:28)
[2016-11-14] MEDS: AMLODIPINE 5 MG TABLET PO SCH (08:29)
[2016-11-14] MEDS: FINASTERIDE 5 MG TABLET PO SCH (08:29)
[2016-11-14] MEDS: ACETAMINOPHEN 325 MG TABLET PO SCH ×3 (08:33→20:27)
[2016-11-14] MEDS: TRAMADOL 50 MG TABLET PO SCH ×3 (08:33→20:26)
--- NOTE | 2016-11-14 09:27 | Progress Note ---
<[place] D - Last Filed: 11/14/16 09:24> Subjective: Raul is worried about his bowels - last BM was 1 week ago. His abdomen is uncomfortable but not painful. He has not had nausea or vomiting. He received a suppository a few hours ago without success. His clavicle and rib pain is improving and he's ok with cutting back on pain medication (he knows the relationship with constipation). Objective Vital signs: Temperature 97.9 F 11/14/16 08:00 Pulse Rate 71 11/14/16 08:00 Respiratory Rate 18 11/14/16 08:00 Blood Pressure 160/84 H 11/14/16 08:00 Pulse Oximetry 93 11/14/16 08:00 Oxygen Delivery Method Room Air Height/Weight/BMI: Height 1.78 m Weight 98.5 kg Body Mass Index 31.4 - Constitutional Present: no acute distress, well nourished, well developed - Routine HEENT Exam Eye: Absent: conjunctival icterus, scleral injection ENT: Present: mucous membranes moist, oropharynx clear - Routine Respiratory Exam Present: decreased breath sounds (slightly decreased in bases) - Routine Cardiovascular Exam Present: RRR, S1, S2 - Routine Abdominal Exam Present: non tender, distended. Absent: normoactive bowel sounds (hypoactive) - Routine Extremities Exam Present: edema (trace), pulses intact - Routine Musculoskeletal Exam Musculoskeletal: Present: limited range of motion (sling on right arm) - Routine Skin Exam Present: intact, dry, warm - Routine Neurological Exam Present: alert, oriented X3 - Routine Psychiatric Exam Present: normal affect, normal thought process, cooperative Results - Labs CBC & Chem 7: 11/13/16 04:48 11/13/16 04:48 Assessment and Plan (1) Multiple fractures of rib involving four or more ribs Current visit: Yes Status: Acute (2) Closed right clavicular fracture Current visit: Yes Status: Acute (3) Multiple transverse process fractures Current visit: Yes Status: Acute (4) Hemothorax, traumatic Current visit: Yes Status: Acute DVT Prophylaxis: Lovenox GI Prophylaxis: Protonix Resuscitation Status: Do Not Resuscitate Assessment and Plan: Impression S/P trauma Rt clavicle fx (To follow up with ortho in 1 week). Rt small hemothorax w/ rt rib fx #4-7 T6-T7 transverse process fx Right temporal lac - sutures placed 11/09/16 Hyponatremia - resolved GERD HLD Sensorineural hearing loss BPH Obesity Constipation Grief from recent loss of . Plan 11/14/16 Constipation - nurses will check for impaction. Obtain KUB, concern for ileus. Reduce PRN narcotic use - pt agreeable. Further orders pending KUB - consider lactulose or enema. Likely can remove sutures in the next couple of days. Continue Norvasc for elevated BP - may need new Rx at time of dc. Sodium yesterday was 134. Monitor periodically with recent hyponatremia. If he's still here will need to reschedule ortho appt, which was supposed to be this week. Sepsis Assessment - Evaluation Sepsis screening result: No Definite Risk Hospital Course Summary Disclaimer: The visit summary below is not to be considered part of the above Progress Note. Hospital Course: 11/10/16 S/P trauma Rt clavicle fx - cont sling; NWB; F/U with Dr. Chapa at [facility] in 1 week Rt small hemothorax w/ rt rib fx #4-7; F/U with [facility] Trauma Dept in 2 weeks. Push IS. T6-T7 transverse process fx - supportive care. No focal neuro deficits. Hyponatremia - improved to 132. Continue free water restriction and if Na improves on labs in am, will likely lift restriction. Dysphagia - consult speech. lac right parietal - sutures placed 11/09/16 Constipation - PRNs available. Monitor closely for depression. 11/11/16 Lift free water restriction. May have water but with 1500 ml/day restriction. Recheck BMP on 11/13. Pain is a big issue - I increased oxycodone to q4h while awake, but we will need to monitor closely for side effects (ie somnolence, reduced respirations). May need to reduce frequency. I also scheduled Tylenol as a QID medication. Continue IS - will obtain CXR in am to f/u on rib fx and small hemothorax. Constipation - add MiraLAX daily; PRN MOM and dulcolax suppository. 11/12/16 Labs have been fairly stable. Will repeat in AM. Pain is major issue- he does have lidocaine patch applied to site. Add low dose Gabapentin. Pain is not much better on scheduled oxycodone. Will change to Percocet PRN due to severe constipation. Will schedule Tramadol and Decrease APAP to 325mg PO TID. Monitor for side effects. For constipation, change Colace to Senna-S BID. Add Dulcolax PO x 1 now and PRN SC dosing. May need to add Lactulose for constipation. He needs to follow up with ortho next week. BP has been running high- pt. states this is due to pain. Added Norvasc low dose today- will start Norvasc 5mg tomorrow. 11/14/16 Constipation - nurses will check for impaction. Obtain KUB, concern for ileus. Reduce PRN narcotic use - pt agreeable. Further orders pending KUB - consider lactulose or enema. Likely can remove sutures in the next couple of days. Continue Norvasc for elevated BP - may need new Rx at time of dc. Sodium yesterday was 134. Monitor periodically with recent hyponatremia. If he's still here will need to reschedule ortho appt, which was supposed to be this week. <Yareli Pierre - Last Filed: 11/14/16 21:00> Objective Vital signs: Temperature 97.7 F 11/14/16 20:30 Pulse Rate 79 11/14/16 20:30 Respiratory Rate 16 11/14/16 20:30 Blood Pressure 135/77 11/14/16 20:30 Pulse Oximetry 95 11/14/16 20:30 Oxygen Delivery Method Room Air Height/Weight/BMI: Height 1.78 m Weight 98.5 kg Body Mass Index 31.4 Results - Labs CBC & Chem 7: 11/13/16 04:48 11/13/16 04:48 Assessment and Plan (1) Multiple fractures of rib involving four or more ribs Current visit: Yes Status: Acute (2) Closed right clavicular fracture Current visit: Yes Status: Acute (3) Multiple transverse process fractures Current visit: Yes Status: Acute (4) Hemothorax, traumatic Current visit: Yes Status: Acute Assessment and Plan: I have independently evaluated and examined this patient. I reviewed the chart, the patient's history, and the [employer]FT[employer]/PA's documented findings as above. We discussed and formulated the assessment and plan as above with additions as below: Mr. Choe reports that rib pain is adequately controlled but expressed ongoing frustration with constipation. Appetite is good and his had no nausea. He received lactulose earlier today and is starting to have bowel movements as a result. Respirations are nonlabored with good airflow, right arm in a sling. Abdomen soft, nontender, bowel sounds present. KUB reviewed by myself-nonobstructive bowel gas pattern, increased fecal content. Chest x-ray obtained several days ago also reviewed by myself at patient's request demonstrating small pleural effusions and healing right rib fractures. Continue aggressive bowel regimen, minimize narcotics. X-ray reports reviewed with the patient. Hospital Course Summary Disclaimer: The visit summary below is not to be considered part of the above Progress Note.
--- NOTE | 2016-11-14 11:00 | XRay Report ---
Indication: suspect ileus PROCEDURE: XR KUB: Encounter: Initial Comparison: None Findings: Nonobstructive nonspecific bowel gas pattern. No gross free air on these supine views. Moderate stool in the colon. Degenerative change in the hips. Pelvic phleboliths. Impression: Nonobstructive nonspecific bowel gas pattern. .
[2016-11-14] MEDS ORDERED: FALL RISK - PHARMACY CONSULT MC PRN (12:10)
[2016-11-14] MEDS ORDERED: LACTULOSE 20 GM/30 ML ORAL LIQUID PO ONE (12:28)
[2016-11-14] MEDS: VITAMIN E 400 UNIT CAPSULE PO SCH (14:34)
--- NOTE | 2016-11-14 14:39 | IRU Team Meeting ---
IRU Team Meeting - Nursing Vital Signs: Vital Signs - 24 hr 11/13/16 16:00 11/14/16 00:00 11/14/16 08:00 Temperature 97.6 F 98.7 F 97.9 F Pulse Rate 74 74 71 Respiratory Rate 12 16 18 Blood Pressure 164/89 H 146/77 H 160/84 H Pulse Oximetry 94 92 93 Current Medications: Acetaminophen (Tylenol) 325 mg PO TID [facility] Last Admin: 11/14/16 08:33 Dose: 325 mg Amlodipine Besylate (Norvasc) 5 mg PO DAILY [facility] Last Admin: 11/14/16 08:29 Dose: 5 mg Artificial Tears (Refresh Classic) 1 drop EACH EYE QID PRN PRN Reason: Dry eyes Artificial Tears (Tears Naturale) 1 drops EACH EYE PRN PRN Aspirin (Ecotrin) 81 mg PO DAILY [facility] Last Admin: 11/14/16 08:27 Dose: 81 mg Atorvastatin Calcium (Lipitor) 10 mg PO HS [facility] Last Admin: 11/13/16 21:53 Dose: 10 mg Bisacodyl (Dulcolax) 10 mg RECTALLY DAILY PRN PRN Reason: Constipation Last Admin: 11/14/16 05:08 Dose: 10 mg Calcitonin [place] (Miacalcin Terry) 1 spray NS DAILY [facility] Last Admin: 11/14/16 08:28 Dose: 1 spray Calcium/Vitamin D (Caltrate + D) 1 tab PO DAILY [facility] Last Admin: 11/14/16 08:27 Dose: 1 tab Enoxaparin Sodium (Lovenox) 40 mg SQ DAILY [facility] Last Admin: 11/14/16 08:27 Dose: 40 mg Finasteride (Proscar) 5 mg PO DAILY [facility] Last Admin: 11/14/16 08:29 Dose: 5 mg Gabapentin (Neurontin) 100 mg PO TID [facility] Last Admin: 11/14/16 08:27 Dose: 100 mg Lidocaine (Lidoderm) 2 patch TOP DAILY [facility] Last Admin: 11/14/16 08:28 Dose: 2 patch Lidocaine HCl/Dextrose (Lidoderm Patch Removal) 1 removal TOP 2100 [facility] Last Admin: 11/13/16 21:57 Dose: 1 removal Magnesium Hydroxide (Mom) 30 ml PO DAILY PRN PRN Reason: Constipation Magnesium Oxide (Magox) 400 mg PO BID [facility] Last Admin: 11/14/16 08:27 Dose: 400 mg Omeprazole (Prilosec) 20 mg PO ACB [facility] Last Admin: 11/14/16 05:48 Dose: Not Given Oxycodone/Acetaminophen (Percocet 7.5/325) 1 tab PO Q4H PRN PRN Reason: Pain Last Admin: 11/13/16 17:30 Dose: 1 tab Polyethylene Glycol (Miralax) 17 gm PO BID [facility] Senna/Docusate Sodium (Senna Plus Tablet) 2 tab PO BID [facility] Last Admin: 11/14/16 08:27 Dose: 2 tab Tramadol HCl (Ultram) 50 mg PO TID [facility] Last Admin: 11/14/16 08:33 Dose: 50 mg Vitamin E (Vitamin E) 400 unit PO DAILY [facility] Last Admin: 11/14/16 14:34 Dose: Not Given - Physical Therapy Comments: ambulating well - Occupational Therapy Eating Ability: Independent Grooming Ability: Stand By Assist/Supervision Upper Body Dressing Ability: Stand By Assist/Supervision Lower Body Dressing Ability: Minimal Assistance - Care Plan Anticipated Length of Stay: 1 (week) Anticipated DC Destination: Home, Self Care, Home Health Service
--- NOTE | 2016-11-14 15:48 | IRU Progress Note ---
- Subjective/Serverity of Illness Mr. Choe continues to recover from injuries to his right clavicle and ribs. Has no particular complaints and seems to be improving. Exam Vital Signs: Temperature 97.9 F 11/14/16 08:00 Pulse Rate 71 11/14/16 08:00 Respiratory Rate 18 11/14/16 08:00 Blood Pressure 160/84 H 11/14/16 08:00 Pulse Oximetry 93 11/14/16 08:00 Oxygen Delivery Method Room Air Height/Weight/BMI: Height 1.78 m Weight 98.5 kg Body Mass Index 31.4 - Constitutional Present: no acute distress - Additional findings Additional findings: Patient is comfortable in his sling. Moves his fingers well. Sepsis Assessment - Evaluation Sepsis screening result: No Definite Risk IRU A/P DVT Prophylaxis: Lovenox Resuscitation Status: Do Not Resuscitate - Course Hospital Course: Jayme Quinn MD: - Interventions to Obtain Goals PT Treatment Plan: Balance/Proprioception, Functional Activities, Gait Training , Patient/Family Education, Therapeutic Exercise OT Treatment Plan: ADL (Basic Care), IADL Goals Progress/Modifications: Continue OT and PT. continue to monitor and manage pain.
[2016-11-14] MEDS: ATORVASTATIN 10 MG TABLET PO SCH (20:25)
[2016-11-14] MEDS: LIDOCAINE PATCH REMOVAL TOP SCH (20:27)
[2016-11-15] MEDS: OMEPRAZOLE 20 MG CAPSULE PO SCH (06:37)
[2016-11-15] MEDS: OXYCODONE/APAP 7.5 MG/325 MG TABLET PO PRN (06:52)
[2016-11-15] MEDS: AMLODIPINE 5 MG TABLET PO SCH (09:00)
[2016-11-15] MEDS: LIDOCAINE 5% PATCH TOP SCH (09:11)
[2016-11-15] MEDS: ENOXAPARIN 40 MG/0.4 ML INJECTION SQ SCH (09:13)
[2016-11-15] MEDS: ASPIRIN *EC* 81 MG TABLET PO SCH (09:15)
[2016-11-15] MEDS: CALCITONIN NASAL SPRAY 3.7ml NS SCH (09:15)
[2016-11-15] MEDS: FINASTERIDE 5 MG TABLET PO SCH (09:16)
[2016-11-15] MEDS: MAGNESIUM OXIDE 400 MG TABLET PO SCH ×2 (09:16→21:01)
[2016-11-15] MEDS: CALCIUM 600 + VIT D 400 TABLET PO SCH (09:16)
[2016-11-15] MEDS: GABAPENTIN 100 MG CAPSULE PO SCH ×3 (09:16→21:01)
[2016-11-15] MEDS: VITAMIN E 400 UNIT CAPSULE PO SCH (09:16)
[2016-11-15] MEDS: SENNA + DOCUSATE TABLET PO SCH ×2 (09:17→21:02)
[2016-11-15] MEDS: ACETAMINOPHEN 325 MG TABLET PO SCH ×3 (09:17→21:02)
[2016-11-15] MEDS: TRAMADOL 50 MG TABLET PO SCH ×3 (09:17→21:02)
[2016-11-15] MEDS: POLYETHYL GLYCOL 3350 17gm PACKET PO SCH ×2 (09:18→21:01)
--- NOTE | 2016-11-15 15:14 | IRU Progress Note ---
- Subjective/Serverity of Illness Patient had a good therapy session today. Complains of some soreness in the lateral and proximal left thigh does not affect his walking. On exam, there is no tenderness there. We'll keep an eye on it. I doubt that there is anything significant there. Exam Vital Signs: Temperature 98.1 F 11/15/16 08:00 Pulse Rate 79 11/15/16 08:00 Respiratory Rate 16 11/15/16 08:00 Blood Pressure 133/67 11/15/16 08:00 Pulse Oximetry 91 11/15/16 08:00 Oxygen Delivery Method Room Air Height/Weight/BMI: Height 1.78 m Weight 98.5 kg Body Mass Index 31.4 Sepsis Assessment - Evaluation Sepsis screening result: No Definite Risk IRU A/P DVT Prophylaxis: Lovenox Resuscitation Status: Do Not Resuscitate - Course Hospital Course: Jayme Quinn MD: - Interventions to Obtain Goals PT Treatment Plan: Balance/Proprioception, Functional Activities, Gait Training , Patient/Family Education, Therapeutic Exercise OT Treatment Plan: ADL (Basic Care), IADL
[2016-11-15] MEDS ORDERED: FALL RISK - PHARMACY CONSULT MC PRN (19:55)
[2016-11-15] MEDS: ATORVASTATIN 10 MG TABLET PO SCH (21:01)
[2016-11-16] MEDS: LIDOCAINE PATCH REMOVAL TOP SCH ×2 (01:39→21:42)
[2016-11-16] MEDS: OXYCODONE/APAP 7.5 MG/325 MG TABLET PO PRN (04:19)
[2016-11-16] MEDS: OMEPRAZOLE 20 MG CAPSULE PO SCH (06:17)
[2016-11-16] MEDS: SENNA + DOCUSATE TABLET PO SCH ×2 (08:43→21:41)
[2016-11-16] MEDS: MAGNESIUM OXIDE 400 MG TABLET PO SCH ×2 (08:43→21:41)
[2016-11-16] MEDS: ASPIRIN *EC* 81 MG TABLET PO SCH (08:43)
[2016-11-16] MEDS: GABAPENTIN 100 MG CAPSULE PO SCH ×3 (08:43→21:41)
[2016-11-16] MEDS: POLYETHYL GLYCOL 3350 17gm PACKET PO SCH ×2 (08:43→21:41)
[2016-11-16] MEDS: AMLODIPINE 5 MG TABLET PO SCH (08:43)
[2016-11-16] MEDS: TRAMADOL 50 MG TABLET PO SCH ×3 (08:43→21:42)
[2016-11-16] MEDS: VITAMIN E 400 UNIT CAPSULE PO SCH (08:44)
[2016-11-16] MEDS: FINASTERIDE 5 MG TABLET PO SCH (08:44)
[2016-11-16] MEDS: CALCIUM 600 + VIT D 400 TABLET PO SCH (08:44)
[2016-11-16] MEDS: ACETAMINOPHEN 325 MG TABLET PO SCH ×3 (08:44→21:41)
--- NOTE | 2016-11-16 08:54 | Progress Note ---
Subjective: Raul was seen after taking a shower. He's still having quite a bit of pain to his clavicle and back. He asked for a pain pill last night. He's not sure which area hurts worse. He also notes a new pain to his left hip/thigh - describes it as "stinging" with a little numbness and tingling (localized in the sciatic distribution). He states that his bowels have started to work a little, but he's still having some bloating. He denies feeling short of breath. Objective Vital signs: Temperature 98.6 F 11/15/16 21:00 Pulse Rate 74 11/15/16 21:00 Respiratory Rate 16 11/15/16 21:00 Blood Pressure 138/74 11/15/16 21:00 Pulse Oximetry 94 11/15/16 21:00 Oxygen Delivery Method Room Air Height/Weight/BMI: Height 1.78 m Weight 98.5 kg Body Mass Index 31.4 - Constitutional Present: no acute distress, well nourished, well developed - Routine HEENT Exam Eye: Absent: conjunctival icterus, scleral injection ENT: Present: oropharynx clear - Routine Respiratory Exam Present: CTA bilaterally (slightly decreased air movment to right base) - Routine Cardiovascular Exam Present: RRR, S1, S2 - Routine Abdominal Exam Present: normoactive bowel sounds, non tender, distended (mild) - Routine Extremities Exam Present: no edema, pulses intact, normal capillary refill Comments: large area of fading ecchymosis with clavicular swelling to right chest Healing mild abrasions to left upper back - Routine Back/Spine/Pelvis Exam Back image: 1 - Tender 2 - pain shoots down left hip and thigh - Routine Musculoskeletal Exam Musculoskeletal: Present: no clubbing or cyanosis, limited range of motion ( right shoulder) - Routine Skin Exam Present: dry, warm, ecchymosis - Routine Neurological Exam Present: alert, oriented X3, CN II-XII intact - Routine Psychiatric Exam Present: normal affect, normal thought process, cooperative Results - Labs CBC & Chem 7: 11/13/16 04:48 11/13/16 04:48 Assessment and Plan (1) Multiple fractures of rib involving four or more ribs Current visit: Yes Status: Acute (2) Closed right clavicular fracture Current visit: Yes Status: Acute (3) Multiple transverse process fractures Current visit: Yes Status: Acute (4) Hemothorax, traumatic Current visit: Yes Status: Acute Resuscitation Status: Do Not Resuscitate Assessment and Plan: Assessment S/P trauma Rt clavicle fx (To follow up with ortho in 1 week). Rt small hemothorax w/ rt rib fx #4-7 T6-T7 transverse process fx Right temporal lac - sutures placed 11/09/16 Hyponatremia - resolved GERD HLD Sensorineural hearing loss BPH Obesity Constipation Grief from recent loss of . Plan Remove right parietal sutures today. Constipation improving - continue bowel regimen + Lactulose PRN. New sx consistent with left sciatica. He's already on Gabapentin - if sx worsen we could increase. I discussed his pain with therapy. Repeat labs in am to f/u on anemia, Na level. Sepsis Assessment - Evaluation Sepsis screening result: No Definite Risk Hospital Course Summary Disclaimer: The visit summary below is not to be considered part of the above Progress Note. Hospital Course: 11/10/16 S/P trauma Rt clavicle fx - cont sling; NWB; F/U with Dr. Chapa at [facility] in 1 week Rt small hemothorax w/ rt rib fx #4-7; F/U with [facility] Tra[facility] in 2 weeks. Push IS. T6-T7 transverse process fx - supportive care. No focal neuro deficits. Hyponatremia - improved to 132. Continue free water restriction and if Na improves on labs in am, will likely lift restriction. Dysphagia - consult speech. lac right parietal - sutures placed 11/09/16 Constipation - PRNs available. Monitor closely for depression. 11/11/16 Lift free water restriction. May have water but with 1500 ml/day restriction. Recheck BMP on 11/13. Pain is a big issue - I increased oxycodone to q4h while awake, but we will need to monitor closely for side effects (ie somnolence, reduced respirations). May need to reduce frequency. I also scheduled Tylenol as a QID medication. Continue IS - will obtain CXR in am to f/u on rib fx and small hemothorax. Constipation - add MiraLAX daily; PRN MOM and dulcolax suppository. 11/12/16 Labs have been fairly stable. Will repeat in AM. Pain is major issue- he does have lidocaine patch applied to site. Add low dose Gabapentin. Pain is not much better on scheduled oxycodone. Will change to Percocet PRN due to severe constipation. Will schedule Tramadol and Decrease APAP to 325mg PO TID. Monitor for side effects. For constipation, change Colace to Senna-S BID. Add Dulcolax PO x 1 now and PRN ID dosing. May need to add Lactulose for constipation. He needs to follow up with ortho next week. BP has been running high- pt. states this is due to pain. Added Norvasc low dose today- will start Norvasc 5mg tomorrow. 11/14/16 Constipation - nurses will check for impaction. Obtain KUB, concern for ileus. Reduce PRN narcotic use - pt agreeable. Further orders pending KUB - consider lactulose or enema. Likely can remove sutures in the next couple of days. Continue Norvasc for elevated BP - may need new Rx at time of dc. Sodium yesterday was 134. Monitor periodically with recent hyponatremia. If he's still here will need to reschedule ortho appt, which was supposed to be this week. 11/16/16 Remove right parietal sutures today. Constipation improving - continue bowel regimen + Lactulose PRN. New sx consistent with left sciatica. He's already on Gabapentin - if sx worsen we could increase. I discussed his pain with therapy. Repeat labs in am to f/u on anemia, Na level.
[2016-11-16] MEDS: CALCITONIN NASAL SPRAY 3.7ml NS SCH (09:13)
[2016-11-16] MEDS: ENOXAPARIN 40 MG/0.4 ML INJECTION SQ SCH (09:13)
[2016-11-16] MEDS: LIDOCAINE 5% PATCH TOP SCH (09:13)
--- NOTE | 2016-11-16 15:09 | IRU Progress Note ---
- Subjective/Serverity of Illness No changes. Overall feels comfortable. Moving arm a little more. Still has some pain L ant thigh Exam Vital Signs: Temperature 97.5 F 11/16/16 08:40 Pulse Rate 81 11/16/16 08:40 Respiratory Rate 16 11/16/16 08:40 Blood Pressure 140/76 H 11/16/16 08:40 Pulse Oximetry 94 11/16/16 08:40 Oxygen Delivery Method Room Air Height/Weight/BMI: Height 1.78 m Weight 98.5 kg Body Mass Index 31.4 - Constitutional Present: no acute distress - Routine Extremities Exam Comments: R arm in sling moves fingers well Sepsis Assessment - Evaluation Sepsis screening result: No Definite Risk IRU A/P DVT Prophylaxis: Lovenox Resuscitation Status: Do Not Resuscitate - Course Hospital Course: Jayme Quinn MD: - Interventions to Obtain Goals PT Treatment Plan: Balance/Proprioception, Functional Activities, Gait Training , Patient/Family Education, Therapeutic Exercise OT Treatment Plan: ADL (Basic Care), IADL
[2016-11-16] MEDS: ATORVASTATIN 10 MG TABLET PO SCH (21:41)
[2016-11-17] MEDS: OMEPRAZOLE 20 MG CAPSULE PO SCH ×2 (04:39→07:15)
[2016-11-17] MEDS: LIDOCAINE 5% PATCH TOP SCH (08:06)
[2016-11-17] MEDS: VITAMIN E 400 UNIT CAPSULE PO SCH (08:35)
[2016-11-17] MEDS: CALCIUM 600 + VIT D 400 TABLET PO SCH (08:35)
[2016-11-17] MEDS: AMLODIPINE 5 MG TABLET PO SCH (08:36)
[2016-11-17] MEDS: ACETAMINOPHEN 325 MG TABLET PO SCH ×3 (08:36→20:07)
[2016-11-17] MEDS: ASPIRIN *EC* 81 MG TABLET PO SCH (08:36)
[2016-11-17] MEDS: TRAMADOL 50 MG TABLET PO SCH ×3 (08:36→20:02)
[2016-11-17] MEDS: GABAPENTIN 100 MG CAPSULE PO SCH ×3 (08:37→20:02)
[2016-11-17] MEDS: FINASTERIDE 5 MG TABLET PO SCH (08:37)
[2016-11-17] MEDS: SENNA + DOCUSATE TABLET PO SCH ×2 (08:37→20:02)
[2016-11-17] MEDS: CALCITONIN NASAL SPRAY 3.7ml NS SCH (08:38)
[2016-11-17] MEDS: MAGNESIUM OXIDE 400 MG TABLET PO SCH ×2 (08:38→20:03)
[2016-11-17] MEDS: POLYETHYL GLYCOL 3350 17gm PACKET PO SCH ×2 (08:38→20:03)
[2016-11-17] MEDS: ENOXAPARIN 40 MG/0.4 ML INJECTION SQ SCH (08:40)
--- NOTE | 2016-11-17 14:46 | Progress Note ---
Subjective: Raul is slowly improving, but he knows that he's not ready to return home yet. He is still having pain to his right clavicle and has developed tightness in his shoulder. He also developed a productive cough (unknown sputum color - he swallows it). He denies fever or chills or SOA. No chest pain/angina. He denies nausea. His bowels are moving much better and he's not as bloated. His appetite is improving and is "good enough". 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 Objective Vital signs: Temperature 98.2 F 11/17/16 07:48 Pulse Rate 70 11/17/16 07:48 Respiratory Rate 20 11/17/16 07:48 Blood Pressure 158/83 H 11/17/16 07:48 Pulse Oximetry 93 11/17/16 07:48 Oxygen Delivery Method Room Air Height/Weight/BMI: Height 1.78 m Weight 98.5 kg Body Mass Index 31.4 - Constitutional Present: well nourished, well developed - Routine HEENT Exam ENT: Present: mucous membranes moist, oropharynx clear - Routine Respiratory Exam Present: CTA bilaterally - Routine Cardiovascular Exam Present: RRR, S1, S2 - Routine Abdominal Exam Present: soft, normoactive bowel sounds, non distended, non tender - Routine Extremities Exam Present: no edema, pulses intact, normal capillary refill - Routine Musculoskeletal Exam Musculoskeletal: Present: limited range of motion (right shoulder in sling) - Routine Skin Exam Present: intact, dry, warm - Routine Neurological Exam Present: alert, oriented X3 - Routine Psychiatric Exam Present: normal affect, normal thought process, cooperative Results - Labs CBC & Chem 7: 11/13/16 04:48 11/13/16 04:48 Assessment and Plan (1) Multiple fractures of rib involving four or more ribs Current visit: Yes Status: Acute (2) Closed right clavicular fracture Current visit: Yes Status: Acute (3) Multiple transverse process fractures Current visit: Yes Status: Acute (4) Hemothorax, traumatic Current visit: Yes Status: Acute Assessment and Plan: Assessment S/P trauma Rt clavicle fx (To follow up with ortho in 1 week). Rt small hemothorax w/ rt rib fx #4-7 T6-T7 transverse process fx Right temporal lac - sutures placed 11/09/16 Hyponatremia - resolved GERD HLD Sensorineural hearing loss BPH Obesity Constipation Grief from recent loss of . Situational depression. Plan I've asked the nurses to remove the sutures today. I discussed depression management with Raul - he does not want to take another pill. He's not interested in seeing a psychiatrist, but he will think about these two things and we will talk more about it after the weekend. Repeat CXR today due to productive cough. Constipation resolved. Sepsis Assessment - Evaluation Sepsis screening result: No Definite Risk Hospital Course Summary Disclaimer: The visit summary below is not to be considered part of the above Progress Note. Hospital Course: 11/10/16 S/P trauma Rt clavicle fx - cont sling; NWB; F/U with Dr. Chapa at [facility] in 1 week Rt small hemothorax w/ rt rib fx #4-7; F/U with [facility] Trauma Dept in 2 weeks. Push IS. T6-T7 transverse process fx - supportive care. No focal neuro deficits. Hyponatremia - improved to 132. Continue free water restriction and if Na improves on labs in am, will likely lift restriction. Dysphagia - consult speech. lac right parietal - sutures placed 11/09/16 Constipation - PRNs available. Monitor closely for depression. 11/11/16 Lift free water restriction. May have water but with 1500 ml/day restriction. Recheck BMP on 11/13. Pain is a big issue - I increased oxycodone to q4h while awake, but we will need to monitor closely for side effects (ie somnolence, reduced respirations). May need to reduce frequency. I also scheduled Tylenol as a QID medication. Continue IS - will obtain CXR in am to f/u on rib fx and small hemothorax. Constipation - add MiraLAX daily; PRN MOM and dulcolax suppository. 11/12/16 Labs have been fairly stable. Will repeat in AM. Pain is major issue- he does have lidocaine patch applied to site. Add low dose Gabapentin. Pain is not much better on scheduled oxycodone. Will change to Percocet PRN due to severe constipation. Will schedule Tramadol and Decrease APAP to 325mg PO TID. Monitor for side effects. For constipation, change Colace to Senna-S BID. Add Dulcolax PO x 1 now and PRN [place] dosing. May need to add Lactulose for constipation. He needs to follow up with ortho next week. BP has been running high- pt. states this is due to pain. Added Norvasc low dose today- will start Norvasc 5mg tomorrow. 11/14/16 Constipation - nurses will check for impaction. Obtain KUB, concern for ileus. Reduce PRN narcotic use - pt agreeable. Further orders pending KUB - consider lactulose or enema. Likely can remove sutures in the next couple of days. Continue Norvasc for elevated BP - may need new Rx at time of dc. Sodium yesterday was 134. Monitor periodically with recent hyponatremia. If he's still here will need to reschedule ortho appt, which was supposed to be this week. 11/16/16 Remove right parietal sutures today. Constipation improving - continue bowel regimen + Lactulose PRN. New sx consistent with left sciatica. He's already on Gabapentin - if sx worsen we could increase. I discussed his pain with therapy. Repeat labs in am to f/u on anemia, Na level. 11/17/16 I've asked the nurses to remove the sutures today. I discussed depression management with Raul - he does not want to take another pill. He's not interested in seeing a psychiatrist, but he will think about these two things and we will talk more about it after the weekend. Repeat CXR today due to productive cough. Constipation resolved.
--- NOTE | 2016-11-17 16:04 | XRay Report ---
INDICATION: cough PROCEDURE: CHEST 2-VIEWS UPRIGHT (PA & LAT) Encounter: Initial COMPARISON: November 12, 2016 FINDINGS: Stable small right pleural effusion. No visible pneumothorax. Mild right basilar atelectasis is slightly improved. Left lung is stable. Heart size and mediastinal contours are stable. Pulmonary vascularity appears normal. Multiple right rib fractures are redemonstrated. Impression: Stable chest with a small right effusion. .
[2016-11-17] MEDS: ATORVASTATIN 10 MG TABLET PO SCH (20:03)
[2016-11-17] MEDS: LIDOCAINE PATCH REMOVAL TOP SCH (20:10)
[2016-11-18] MEDS: OXYCODONE/APAP 7.5 MG/325 MG TABLET PO PRN (03:20)
[2016-11-18] MEDS: OMEPRAZOLE 20 MG CAPSULE PO SCH (06:23)
[2016-11-18] MEDS: POLYETHYL GLYCOL 3350 17gm PACKET PO SCH ×2 (08:34→20:30)
[2016-11-18] MEDS: FINASTERIDE 5 MG TABLET PO SCH (08:36)
[2016-11-18] MEDS: GABAPENTIN 100 MG CAPSULE PO SCH ×3 (08:36→20:29)
[2016-11-18] MEDS: VITAMIN E 400 UNIT CAPSULE PO SCH (08:36)
[2016-11-18] MEDS: CALCIUM 600 + VIT D 400 TABLET PO SCH (08:36)
[2016-11-18] MEDS: SENNA + DOCUSATE TABLET PO SCH ×2 (08:36→20:30)
[2016-11-18] MEDS: ASPIRIN *EC* 81 MG TABLET PO SCH (08:36)
[2016-11-18] MEDS: CALCITONIN NASAL SPRAY 3.7ml NS SCH (08:37)
[2016-11-18] MEDS: MAGNESIUM OXIDE 400 MG TABLET PO SCH ×2 (08:37→20:29)
[2016-11-18] MEDS: TRAMADOL 50 MG TABLET PO SCH ×3 (08:37→20:29)
[2016-11-18] MEDS: AMLODIPINE 5 MG TABLET PO SCH (08:38)
[2016-11-18] MEDS: ACETAMINOPHEN 325 MG TABLET PO SCH ×3 (08:38→20:30)
[2016-11-18] MEDS: ENOXAPARIN 40 MG/0.4 ML INJECTION SQ SCH (08:38)
[2016-11-18] MEDS: LIDOCAINE 5% PATCH TOP SCH (11:41)
[2016-11-18] MEDS: ATORVASTATIN 10 MG TABLET PO SCH (20:29)
[2016-11-18] MEDS: LIDOCAINE PATCH REMOVAL TOP SCH (20:31)
[2016-11-19] MEDS: OXYCODONE/APAP 7.5 MG/325 MG TABLET PO PRN (03:37)
[2016-11-19] MEDS: OMEPRAZOLE 20 MG CAPSULE PO SCH (06:28)
[2016-11-19] MEDS: ASPIRIN *EC* 81 MG TABLET PO SCH (08:51)
[2016-11-19] MEDS: TRAMADOL 50 MG TABLET PO SCH ×3 (08:51→21:14)
[2016-11-19] MEDS: VITAMIN E 400 UNIT CAPSULE PO SCH (08:51)
[2016-11-19] MEDS: FINASTERIDE 5 MG TABLET PO SCH (08:52)
[2016-11-19] MEDS: AMLODIPINE 5 MG TABLET PO SCH (08:52)
[2016-11-19] MEDS: CALCIUM 600 + VIT D 400 TABLET PO SCH (08:52)
[2016-11-19] MEDS: ACETAMINOPHEN 325 MG TABLET PO SCH ×3 (08:52→21:13)
[2016-11-19] MEDS: MAGNESIUM OXIDE 400 MG TABLET PO SCH ×2 (08:52→21:13)
[2016-11-19] MEDS: SENNA + DOCUSATE TABLET PO SCH ×2 (08:52→21:14)
[2016-11-19] MEDS: GABAPENTIN 100 MG CAPSULE PO SCH ×3 (08:52→21:15)
[2016-11-19] MEDS: ENOXAPARIN 40 MG/0.4 ML INJECTION SQ SCH (08:53)
[2016-11-19] MEDS: POLYETHYL GLYCOL 3350 17gm PACKET PO SCH ×2 (08:53→21:17)
[2016-11-19] MEDS: CALCITONIN NASAL SPRAY 3.7ml NS SCH (08:54)
[2016-11-19] MEDS: LIDOCAINE 5% PATCH TOP SCH (11:15)
--- NOTE | 2016-11-19 11:36 | Progress Note ---
Subjective: Patient seen today sitting in the dining room after breakfast. Overall he reports she is doing well. He still has a lot of pain anytime he moves the right arm. However, he does report that he feels like his pain control regimen is acceptable. He states he gets up about 3 AM with pain every night. Whatever they give him at that point makes him very sleepy. He wonders if he can have something "less strong" at that time. He reports good bowel movements and no problems with urination. Does report nocturia 3 typically. No complaints of chest pain or shortness of breath. He coughs some, but reports this is normal for him. Continues with incentive spirometry. Objective Vital signs: Temperature 97.4 F 11/19/16 08:00 Pulse Rate 68 11/19/16 08:00 Respiratory Rate 14 11/19/16 08:00 Blood Pressure 148/77 H 11/19/16 08:00 Pulse Oximetry 93 11/19/16 08:00 Oxygen Delivery Method Room Air Height/Weight/BMI: Height 1.78 m Weight 98.5 kg Body Mass Index 31.4 - Constitutional Present: no acute distress, well nourished, well developed - Routine HEENT Exam Head: Present: normocephalic, atraumatic ENT: Present: mucous membranes moist, dentition normal - Routine Respiratory Exam Present: CTA bilaterally. Absent: wheezes - Routine Cardiovascular Exam Present: RRR, S1, S2. Absent: murmur - Routine Abdominal Exam Present: soft, normoactive bowel sounds, non distended. Absent: tenderness - Routine Extremities Exam Present: no edema, normal capillary refill - Routine Musculoskeletal Exam Musculoskeletal: Present: limited range of motion (right shoulder. He remains in a sling. Pain in the right shoulder and clavicular and anterior chest with movement or coughing.) - Routine Skin Exam Present: dry, warm - Routine Neurological Exam Present: alert, oriented X3 - Routine Lymphatic Exam Lymphatic: Absent: adenopathy - Routine Psychiatric Exam Present: normal affect, normal thought process Results - Labs CBC & Chem 7: 11/13/16 04:48 11/13/16 04:48 - Imaging and Cardiology Chest x-ray Additional comments: Chest x-ray COMPARISON: November 12, 2016 FINDINGS: Stable small right pleural effusion. No visible pneumothorax. Mild right basilar atelectasis is slightly improved. Left lung is stable. Heart size and mediastinal contours are stable. Pulmonary vascularity appears normal. Multiple right rib fractures are redemonstrated. Impression: Stable chest with a small right effusion. Assessment and Plan (1) Multiple fractures of rib involving four or more ribs Current visit: Yes Status: Acute (2) Closed right clavicular fracture Current visit: Yes Status: Acute (3) Multiple transverse process fractures Current visit: Yes Status: Acute (4) Hemothorax, traumatic Current visit: Yes Status: Acute Assessment and Plan: Assessment S/P trauma Rt clavicle fx (To follow up with ortho in 1 week). Rt small hemothorax w/ rt rib fx #4-7 T6-T7 transverse process fx Right temporal lac - sutures placed 11/09/16 Hyponatremia - resolved GERD HLD Sensorineural hearing loss BPH Obesity Constipation Grief from recent loss of . Situational depression. Plan Overall he is doing well. Vital signs and labs are stable. Pain is the biggest issue at this time, but this is controlled. Will stop the oxycodone (patient feels it is "too strong") and replace it with a 1 time PRN dose of tramadol and Tylenol to use overnight to go along with the routine 3 times a day dosing of tramadol and Tylenol. Sepsis Assessment - Evaluation Sepsis screening result: No Definite Risk Hospital Course Summary Disclaimer: The visit summary below is not to be considered part of the above Progress Note. Hospital Course: 11/10/16 S/P trauma Rt clavicle fx - cont sling; NWB; F/U with Dr. Chapa at [facility] in 1 week Rt small hemothorax w/ rt rib fx #4-7; F/U with [facility] Trauma Dept in 2 weeks. Push IS. T6-T7 transverse process fx - supportive care. No focal neuro deficits. Hyponatremia - improved to 132. Continue free water restriction and if Na improves on labs in am, will likely lift restriction. Dysphagia - consult speech. lac right parietal - sutures placed 11/09/16 Constipation - PRNs available. Monitor closely for depression. 11/11/16 Lift free water restriction. May have water but with 1500 ml/day restriction. Recheck BMP on 11/13. Pain is a big issue - I increased oxycodone to q4h while awake, but we will need to monitor closely for side effects (ie somnolence, reduced respirations). May need to reduce frequency. I also scheduled Tylenol as a QID medication. Continue IS - will obtain CXR in am to f/u on rib fx and small hemothorax. Constipation - add MiraLAX daily; PRN MOM and dulcolax suppository. 11/12/16 Labs have been fairly stable. Will repeat in AM. Pain is major issue- he does have lidocaine patch applied to site. Add low dose Gabapentin. Pain is not much better on scheduled oxycodone. Will change to Percocet PRN due to severe constipation. Will schedule Tramadol and Decrease APAP to 325mg PO TID. Monitor for side effects. For constipation, change Colace to Senna-S BID. Add Dulcolax PO x 1 now and PRN [place] dosing. May need to add Lactulose for constipation. He needs to follow up with ortho next week. BP has been running high- pt. states this is due to pain. Added Norvasc low dose today- will start Norvasc 5mg tomorrow. 11/14/16 Constipation - nurses will check for impaction. Obtain KUB, concern for ileus. Reduce PRN narcotic use - pt agreeable. Further orders pending KUB - consider lactulose or enema. Likely can remove sutures in the next couple of days. Continue Norvasc for elevated BP - may need new Rx at time of dc. Sodium yesterday was 134. Monitor periodically with recent hyponatremia. If he's still here will need to reschedule ortho appt, which was supposed to be this week. 11/16/16 Remove right parietal sutures today. Constipation improving - continue bowel regimen + Lactulose PRN. New sx consistent with left sciatica. He's already on Gabapentin - if sx worsen we could increase. I discussed his pain with therapy. Repeat labs in am to f/u on anemia, Na level. 11/17/16 I've asked the nurses to remove the sutures today. I discussed depression management with Raul - he does not want to take another pill. He's not interested in seeing a psychiatrist, but he will think about these two things and we will talk more about it after the weekend. Repeat CXR today due to productive cough. Constipation resolved. 11/19/16 Will stop the oxycodone (patient feels it is "too strong") and replace it with a 1 time PRN dose of tramadol and Tylenol to use overnight to go along with the routine 3 times a day dosing of tramadol and Tylenol.
[2016-11-19] MEDS ORDERED: TRAMADOL 50 MG TABLET PO PRN (11:41)
[2016-11-19] MEDS ORDERED: ACETAMINOPHEN 500 MG TABLET PO PRN (11:45)
[2016-11-19] MEDS: ATORVASTATIN 10 MG TABLET PO SCH (21:13)
[2016-11-19] MEDS: LIDOCAINE PATCH REMOVAL TOP SCH (21:17)
[2016-11-20] MEDS: OMEPRAZOLE 20 MG CAPSULE PO SCH (06:16)
[2016-11-20] MEDS: ENOXAPARIN 40 MG/0.4 ML INJECTION SQ SCH (08:20)
[2016-11-20] MEDS: CALCITONIN NASAL SPRAY 3.7ml NS SCH (08:20)
[2016-11-20] MEDS: POLYETHYL GLYCOL 3350 17gm PACKET PO SCH ×2 (08:20→20:42)
[2016-11-20] MEDS: SENNA + DOCUSATE TABLET PO SCH ×2 (08:20→20:44)
[2016-11-20] MEDS: GABAPENTIN 100 MG CAPSULE PO SCH ×3 (08:21→21:38)
[2016-11-20] MEDS: TRAMADOL 50 MG TABLET PO SCH ×3 (08:21→21:38)
[2016-11-20] MEDS: ASPIRIN *EC* 81 MG TABLET PO SCH (08:21)
[2016-11-20] MEDS: MAGNESIUM OXIDE 400 MG TABLET PO SCH ×2 (08:21→20:43)
[2016-11-20] MEDS: AMLODIPINE 5 MG TABLET PO SCH (08:21)
[2016-11-20] MEDS: CALCIUM 600 + VIT D 400 TABLET PO SCH (08:21)
[2016-11-20] MEDS: VITAMIN E 400 UNIT CAPSULE PO SCH (08:21)
[2016-11-20] MEDS: ACETAMINOPHEN 325 MG TABLET PO SCH ×3 (08:22→21:38)
[2016-11-20] MEDS: FINASTERIDE 5 MG TABLET PO SCH (08:22)
[2016-11-20] MEDS: LIDOCAINE 5% PATCH TOP SCH (10:21)
--- NOTE | 2016-11-20 11:42 | IRU Progress Note ---
- Subjective/Serverity of Illness Mr. Choe was interviewed and examined in his room today. He continues to improve with therapy but feels as though the progress is slow. Seems to be discouraged. He does live alone most the time although daughter does live in the basement. She works outside the home during the daytime. He finds it difficult to dress himself at present with a rib fractures and clavicular fracture. Continues to make slow progress. Does complain of left lateral thigh pain. He is on gabapentin 100 mg 3 times daily. We will increase this. He is having bowel movements. He denies any shortness of breath. Update on medical problems: 1. Acute fractures of right clavicle, right ribs 3-6, transverse processes of T6 and T7. Pain medications were manipulated. Denies shortness of breath. Pain does limit his ability to dress himself and therefore limits his therapy. 2. Hemothorax: Currently no evidence of shortness of breath nor infection. Recent chest x-ray showed a small effusion. 3. Multiple trauma: Continues to require pain medication in this regard. 4. Anorexia: His appetite is improved. 5. Hyponatremia: Continuing to monitor sodium levels. 6. Constipation: Seems to be improved with regard to constipation. 7. Depression: He is discouraged at the present time. Hospitalist service discussed antidepressants with him but he declines at present. Exam Vital Signs: Temperature 97.8 F 11/20/16 08:00 Pulse Rate 74 11/20/16 08:00 Respiratory Rate 16 11/20/16 08:00 Blood Pressure 165/84 H 11/20/16 08:00 Pulse Oximetry 91 11/20/16 08:00 Oxygen Delivery Method Room Air Height/Weight/BMI: Height 1.78 m Weight 98.5 kg Body Mass Index 31.4 Comments: The patient is awake, alert and oriented and in moderate acute distress. Mainly points to the left lateral thigh area which hurts more at nighttime. This is a burning discomfort. Pupils are equal. The neck is supple. Chest: Clear to auscultation bilaterally. Cor: RR with no gallop, click nor murmur Abd: soft with normo-active bowel sounds. There are no masses, no tenderness and no guarding. Extremities: No edema is noted. There are good pulses in both ankles. No cyanosis is present. Sepsis Assessment - Evaluation Sepsis screening result: No Definite Risk IRU A/P (1) Multiple fractures of rib involving four or more ribs Current visit: Yes Status: Acute Continues to struggle with pain with movement. At rest he seems to be comfortable. Pain medications have been manipulated. Finds it difficult to dress himself at this time due to the discomfort. (2) Closed right clavicular fracture Qualifiers: Encounter type: subsequent encounter Current visit: Yes Status: Acute (3) Multiple transverse process fractures Current visit: Yes Status: Acute (4) BPH (benign prostatic hyperplasia) Qualifiers: Lower urinary tract symptom presence: symptoms present Lower urinary tract symptom detail: nocturia Qualified Code(s): N40.1 - Benign prostatic hyperplasia with lower urinary tract symptoms; R35.1 - Nocturia Current visit: Yes Status: Acute (5) Hyperlipidemia Qualifiers: Hyperlipidemia type: unspecified Qualified Code(s): E78.5 - Hyperlipidemia , unspecified Current visit: Yes Status: Acute (6) Hemothorax, traumatic Qualifiers: Encounter type: subsequent encounter Qualified Code(s): S27.1XXD - Traumatic hemothorax, subsequent encounter Current visit: Yes Status: Acute Recent chest x-ray did show improvement in the pleural fluid. (7) Left leg pain Current visit: Yes Status: Acute Complains of left lateral thigh pain particularly at night. This appears to be a radicular pain from his back most likely. We will increase Neurontin to 200 mg 3 times daily. DVT Prophylaxis: Lovenox Resuscitation Status: Do Not Resuscitate - Course Hospital Course: Jayme Quinn MD: 11/20/16 11:43 Continues to show slow improvement. Has difficulty dressing due to the pain. He will need to be fairly independent at the time of dismissal. Does complain of pain in the right lateral thigh. Increase Neurontin from 100 mg 3 times a day to 200 mg 3 times a day. - Interventions to Obtain Goals PT Treatment Plan: Balance/Proprioception, Functional Activities, Gait Training , Patient/Family Education, Therapeutic Exercise OT Treatment Plan: ADL (Basic Care), IADL Goals Progress/Modifications: Increase in Neurontin. Continue working with therapies.
--- NOTE | 2016-11-20 12:03 | Progress Note ---
Subjective: Raul was working with OT - he's still having quite a bit of pain to his right clavicle and also to his left thigh. He states that his constipation has resolved and he's been going regularly. He denies any shortness of breath. He doesn't feel like he's progressing very quickly but admits he is showing improvement. He is in better spirits today. We discussed the option of starting an antidepressant - he doesn't feel like he wants to do that and add another pill right now. He believes that once he starts moving around better he will feel better emotionally too. Objective Vital signs: Temperature 97.8 F 11/20/16 08:00 Pulse Rate 74 11/20/16 08:00 Respiratory Rate 16 11/20/16 08:00 Blood Pressure 165/84 H 11/20/16 08:00 Pulse Oximetry 91 11/20/16 08:00 Oxygen Delivery Method Room Air Height/Weight/BMI: Height 1.78 m Weight 98.5 kg Body Mass Index 31.4 - Constitutional Present: no acute distress, well nourished, well developed, obese - Routine HEENT Exam Eye: Absent: conjunctival icterus, scleral injection ENT: Present: mucous membranes moist, oropharynx clear - Routine Respiratory Exam Present: CTA bilaterally - Routine Cardiovascular Exam Present: RRR, S1, S2 - Routine Abdominal Exam Present: soft, normoactive bowel sounds, non distended, non tender - Routine Extremities Exam Present: no edema, pulses intact - Routine Skin Exam Present: intact, dry, warm, wounds (sutures removed from right parietal scalp wound - healing well), ecchymosis (fading; yellow color to right anterior chest) - Routine Neurological Exam Present: alert, oriented X3, CN II-XII intact - Routine Psychiatric Exam Present: normal affect, normal thought process, cooperative Results - Labs CBC & Chem 7: 11/13/16 04:48 11/13/16 04:48 Assessment and Plan (1) Multiple fractures of rib involving four or more ribs Current visit: Yes Status: Acute (2) Closed right clavicular fracture Current visit: Yes Status: Acute (3) Multiple transverse process fractures Current visit: Yes Status: Acute (4) Hemothorax, traumatic Current visit: Yes Status: Acute DVT Prophylaxis: Lovenox GI Prophylaxis: other (Prilosec) Resuscitation Status: Do Not Resuscitate Assessment and Plan: Assessment S/P trauma Rt clavicle fx (To follow up with ortho in 1 week). Rt small hemothorax w/ rt rib fx #4-7 T6-T7 transverse process fx Right temporal lac - sutures placed 11/09/16; removed 11/17/16 Hyponatremia - resolved GERD HLD Sensorineural hearing loss BPH Obesity Constipation Grief from recent loss of . Situational depression. Plan Discussed right leg radicular pain with Dr. Quinn - he will increase gabapentin. I also discussed with therapy and they will investigate for possible sciatic nerve involvement. Constipation has resolved. Continue to monitor for depression - not interested in taking an antidepressant right now. Recheck labs for surveillance. CXR from 11/17/16 personally reviewed - small right effusion but otherwise no acute problems. Sepsis Assessment - Evaluation Sepsis screening result: No Definite Risk Hospital Course Summary Disclaimer: The visit summary below is not to be considered part of the above Progress Note. Hospital Course: 11/10/16 S/P trauma Rt clavicle fx - cont sling; NWB; F/U with Dr. Chapa at [facility] in 1 week Rt small hemothorax w/ rt rib fx #4-7; F/U with [facility] Trauma Dept in 2 weeks. Push IS. T6-T7 transverse process fx - supportive care. No focal neuro deficits. Hyponatremia - improved to 132. Continue free water restriction and if Na improves on labs in am, will likely lift restriction. Dysphagia - consult speech. lac right parietal - sutures placed 11/09/16 Constipation - PRNs available. Monitor closely for depression. 11/11/16 Lift free water restriction. May have water but with 1500 ml/day restriction. Recheck BMP on 11/13. Pain is a big issue - I increased oxycodone to q4h while awake, but we will need to monitor closely for side effects (ie somnolence, reduced respirations). May need to reduce frequency. I also scheduled Tylenol as a QID medication. Continue IS - will obtain CXR in am to f/u on rib fx and small hemothorax. Constipation - add MiraLAX daily; PRN MOM and dulcolax suppository. 11/12/16 Labs have been fairly stable. Will repeat in AM. Pain is major issue- he does have lidocaine patch applied to site. Add low dose Gabapentin. Pain is not much better on scheduled oxycodone. Will change to Percocet PRN due to severe constipation. Will schedule Tramadol and Decrease APAP to 325mg PO TID. Monitor for side effects. For constipation, change Colace to Senna-S BID. Add Dulcolax PO x 1 now and PRN [place] dosing. May need to add Lactulose for constipation. He needs to follow up with ortho next week. BP has been running high- pt. states this is due to pain. Added Norvasc low dose today- will start Norvasc 5mg tomorrow. 11/14/16 Constipation - nurses will check for impaction. Obtain KUB, concern for ileus. Reduce PRN narcotic use - pt agreeable. Further orders pending KUB - consider lactulose or enema. Likely can remove sutures in the next couple of days. Continue Norvasc for elevated BP - may need new Rx at time of dc. Sodium yesterday was 134. Monitor periodically with recent hyponatremia. If he's still here will need to reschedule ortho appt, which was supposed to be this week. 11/16/16 Remove right parietal sutures today. Constipation improving - continue bowel regimen + Lactulose PRN. New sx consistent with left sciatica. He's already on Gabapentin - if sx worsen we could increase. I discussed his pain with therapy. Repeat labs in am to f/u on anemia, Na level. 11/17/16 I've asked the nurses to remove the sutures today. I discussed depression management with Raul - he does not want to take another pill. He's not interested in seeing a psychiatrist, but he will think about these two things and we will talk more about it after the weekend. Repeat CXR today due to productive cough. Constipation resolved. 11/19/16 Will stop the oxycodone (patient feels it is "too strong") and replace it with a 1 time PRN dose of tramadol and Tylenol to use overnight to go along with the routine 3 times a day dosing of tramadol and Tylenol. 11/20/16 Discussed right leg radicular pain with Dr. Quinn - he will increase gabapentin. I also discussed with therapy and they will investigate for possible sciatic nerve involvement. Constipation has resolved. Continue to monitor for depression - not interested in taking an antidepressant right now. Recheck labs for surveillance. CXR from 11/17/16 personally reviewed - small right effusion but otherwise no acute problems.
[2016-11-20 19:41] VITALS: RESP 16
[2016-11-20] MEDS: LIDOCAINE PATCH REMOVAL TOP SCH (20:41)
[2016-11-20] MEDS: ATORVASTATIN 10 MG TABLET PO SCH (20:43)
[2016-11-21] MEDS: OMEPRAZOLE 20 MG CAPSULE PO SCH (06:06)
[2016-11-21] MEDS: LIDOCAINE 5% PATCH TOP SCH ×2 (07:50→08:03)
[2016-11-21] MEDS: CALCITONIN NASAL SPRAY 3.7ml NS SCH (08:56)
[2016-11-21] MEDS: ENOXAPARIN 40 MG/0.4 ML INJECTION SQ SCH (08:56)
[2016-11-21] MEDS: CALCIUM 600 + VIT D 400 TABLET PO SCH (08:57)
[2016-11-21] MEDS: VITAMIN E 400 UNIT CAPSULE PO SCH (08:57)
[2016-11-21] MEDS: POLYETHYL GLYCOL 3350 17gm PACKET PO SCH (08:57)
[2016-11-21] MEDS: MAGNESIUM OXIDE 400 MG TABLET PO SCH (08:57)
[2016-11-21] MEDS: SENNA + DOCUSATE TABLET PO SCH (08:57)
[2016-11-21] MEDS: AMLODIPINE 5 MG TABLET PO SCH (08:57)
[2016-11-21] MEDS: TRAMADOL 50 MG TABLET PO SCH ×2 (08:57→15:37)
[2016-11-21] MEDS: FINASTERIDE 5 MG TABLET PO SCH (08:57)
[2016-11-21] MEDS: ASPIRIN *EC* 81 MG TABLET PO SCH (08:57)
[2016-11-21] MEDS: GABAPENTIN 100 MG CAPSULE PO SCH ×2 (08:58→15:37)
[2016-11-21] MEDS: ACETAMINOPHEN 325 MG TABLET PO SCH ×2 (08:58→15:37)
[2016-11-21 09:33] VITALS: BP 155/81; PULSE 91; TEMP 97.9; O2SAT 96
--- NOTE | 2016-11-21 11:48 | IRU Progress Note ---
- Subjective/Serverity of Illness Mr. Choe is planning to return to his home today. He states that he is able to dress himself. That was a significant issue yesterday. He believes that he is able to do that at this time. Bowels are moving. Pain control continues to be an issue and we will need to provide him with a prescription for pain medication at the time of dismissal. Team assessment will be today. Looks like he has done well with therapy. Current status of medical issues as follows: 1. Acute fractures of right clavicle, right ribs 3-6, transverse processes of T6 and T7. Pain medications were manipulated. Denies shortness of breath. While he continues to have pain, he has improved in his ability to dress himself and take care of himself at home. 2. Hemothorax: Currently no evidence of shortness of breath nor infection. Recent chest x-ray showed a small effusion. 3. Multiple trauma: Continues to require pain medication in this regard. We will send him home with a pain med prescription. 4. Anorexia: His appetite is improved. 5. Hyponatremia: Continuing to monitor sodium levels. Borderline low. 6. Constipation: Seems to be improved with regard to constipation. 7. Depression: He is discouraged at the present time. Hospitalist service discussed antidepressants with him but he declines at present. Truly seems to be more upbeat today when he thinks about going home. Exam Vital Signs: Temperature 97.9 F 11/21/16 08:00 Pulse Rate 91 11/21/16 08:00 Respiratory Rate 16 11/21/16 08:00 Blood Pressure 155/81 H 11/21/16 08:00 Pulse Oximetry 96 11/21/16 08:00 Oxygen Delivery Method Room Air Height/Weight/BMI: Height 1.78 m Weight 96.3 kg Body Mass Index 31.4 Comments: The patient is awake, alert and oriented and in no acute distress. Pupils are equal. The neck is supple. Chest: Clear to auscultation bilaterally. Cor: RR with no gallop, click nor murmur Abd: soft with normo-active bowel sounds. There are no masses, no tenderness and no guarding. Extremities: No edema is noted. There are good pulses in both ankles. No cyanosis is present. Results IRU - Labs Labs: Reviewed sodium of 132. Sepsis Assessment - Evaluation Sepsis screening result: No Definite Risk IRU A/P (1) Multiple fractures of rib involving four or more ribs Current visit: Yes Status: Acute Seems to be stable with regard to his rib fractures. Pain is an issue but it is adequately controlled at the present time. He is able to dress himself and care for himself independently. (2) Closed right clavicular fracture Qualifiers: Encounter type: subsequent encounter Current visit: Yes Status: Acute (3) Multiple transverse process fractures Current visit: Yes Status: Acute (4) BPH (benign prostatic hyperplasia) Qualifiers: Lower urinary tract symptom presence: symptoms present Lower urinary tract symptom detail: nocturia Qualified Code(s): N40.1 - Benign prostatic hyperplasia with lower urinary tract symptoms; R35.1 - Nocturia Current visit: Yes Status: Acute (5) Hyperlipidemia Qualifiers: Hyperlipidemia type: unspecified Qualified Code(s): E78.5 - Hyperlipidemia , unspecified Current visit: Yes Status: Acute (6) Hemothorax, traumatic Qualifiers: Encounter type: subsequent encounter Qualified Code(s): S27.1XXD - Traumatic hemothorax, subsequent encounter Current visit: Yes Status: Acute (7) Left leg pain Current visit: Yes Status: Acute DVT Prophylaxis: Lovenox Resuscitation Status: Do Not Resuscitate - Course Hospital Course: Jayme Quinn MD: 11/20/16 11:43 Continues to show slow improvement. Has difficulty dressing due to the pain. He will need to be fairly independent at the time of dismissal. Does complain of pain in the right lateral thigh. Increase Neurontin from 100 mg 3 times a day to 200 mg 3 times a day. 11/21/16 11:48 Team assessment today. Anticipate going home today. - Interventions to Obtain Goals PT Treatment Plan: Balance/Proprioception, Functional Activities, Gait Training , Patient/Family Education, Therapeutic Exercise OT Treatment Plan: ADL (Basic Care), IADL
--- NOTE | 2016-11-21 14:56 | Discharge Instructions ---
Discharge Plan - Med Rec/Dispo Referrals/Follow Up: Gilberto Chapa MD [Other] (Dr. Jenny Chapa on 11/29/16 at 3:30 pm for follow-up. . [facility] [address] [place] [address] ) , [facility] [Other] (F/U with S Trauma Dept in 2 weeks. [facility]/Trauma Surgery [address] [place] [address] ) Richi Gibbs MD [Family Provider] - (Dr. Yehuda Gibbs on 11/28/16 at 10: 15 am for Hosp. follow-up. Appt. will be with LAURYN Parker. .) Additional Instructions: Follow up with your physician about depression, especially if you are still feeling down or hopeless after returning home. We talked about starting an antidepressant or talking to a psychiatrist, and this might be worth considering again. Limit your water intake to 2L per day. Your sodium level was slightly low on the day of discharge. Please have your doctor monitor your sodium level. Continue with stool softeners while you are still on pain pills (Tramadol). Your blood pressure was running high and we started Norvasc 5 mg daily. Continue using your incentive spirometer at home to exercise your lungs. Prescriptions: New Acetaminophen [Tylenol] 325 mg PO TID tablet Amlodipine [Norvasc] 5 mg PO DAILY #30 tab Calcitonin Nasal [place] [Miacalcin [place]] 1 spray NS DAILY #1 bottle Calcium 600 + D [Caltrate + D] 1 tab PO DAILY tablet Polyvinyl Alcohol/Povidone O/S [Refresh Classic] 1 drop EACH EYE QID PRN amp PRN Reason: Dry Eyes Acetaminophen [Tylenol] 500 mg PO DAILY PRN tablet PRN Reason: Discomfort Senna + Docusate [Senna Plus Tablet] 1 - 2 tab PO BID tablet Continue Vitamin E 400 unit PO DAILY #0 Magnesium Oxide [Magnesium] 1 tab PO BID Triamcinolone 0.1% Cream 15 G 1 applic TOP QIDPRN Omeprazole 20 mg PO DAILY #90 Atorvastatin Calcium 10 mg PO HS #0 Finasteride [Proscar] 5 mg PO DAILY Aspirin [Ecotrin] 81 mg PO DAILY Discontinued Acetaminophen 2 tab PO Q4H Oxycodone *Ir* [Roxicodone *Ir*] 5 mg PO Q4HPRN PRN PRN Reason: Pain Docusate Sodium [Colace] 1 cap PO BID No Action Lidocaine 5% Patch [Lidoderm] 2 patch TRANSDERMA DAILY Refresh Classic 1 drop EACH EYE QIDPRN PRN PRN Reason: Dry Eyes Discharge Instructions/Outpatient Orders: BMP - Basic Metabolic - [facility] Time Frame: 3 Days, Location: Determined By Patient
--- NOTE | 2016-11-21 15:32 | Discharge Instructions ---
Discharge Plan - Med Rec/Dispo Referrals/Follow Up: Gilberto Chapa MD [Other] (Dr. Jenny Chapa on 11/29/16 at 3:30 pm for follow-up. . [facility] [address] [place] [address] ) , [facility] [Other] (F/U with [facility] in 2 weeks. [facility]Tra[facility] [address] [place] [address] ) Richi Gibbs MD [Family Provider] - (Dr. Yehuda Gibbs on 11/28/16 at 10: 15 am for Hosp. follow-up. Appt. will be with LAURYN Parker. .) [place] Instructions: Clavicle Fracture (DC) Additional Instructions: Follow up with your physician about depression, especially if you are still feeling down or hopeless after returning home. We talked about starting an antidepressant or talking to a psychiatrist, and this might be worth considering again. Limit your water intake to 2L per day. Your sodium level was slightly low on the day of discharge. Please have your doctor monitor your sodium level. Continue with stool softeners while you are still on pain pills (Tramadol). Your blood pressure was running high and we started Norvasc 5 mg daily. Continue using your incentive spirometer at home to exercise your lungs. Prescriptions: New Acetaminophen [Tylenol] 325 mg PO TID tablet Amlodipine [Norvasc] 5 mg PO DAILY #30 tab Calcitonin Nasal [place] [Miacalcin Exchange] 1 spray NS DAILY #1 bottle Calcium 600 + D [Caltrate + D] 1 tab PO DAILY tablet Polyvinyl Alcohol/Povidone O/S [Refresh Classic] 1 drop EACH EYE QID PRN amp PRN Reason: Dry Eyes Gabapentin [Neurontin] 200 mg PO TID #45 capsule Tramadol [Ultram] 50 mg PO Q6H PRN #30 tablet PRN Reason: Pain Acetaminophen [Tylenol] 500 mg PO DAILY PRN tablet PRN Reason: Discomfort Senna + Docusate [Senna Plus Tablet] 1 - 2 tab PO BID tablet Continue Vitamin E 400 unit PO DAILY #0 Magnesium Oxide [Magnesium] 1 tab PO BID Triamcinolone 0.1% Cream 15 G 1 applic TOP QIDPRN Lidocaine 5% Patch [Lidoderm] 2 patch TRANSDERMA DAILY #30 patch Omeprazole 20 mg PO DAILY #90 Atorvastatin Calcium 10 mg PO HS #0 Finasteride [Proscar] 5 mg PO DAILY Aspirin [Ecotrin] 81 mg PO DAILY Discontinued Acetaminophen 2 tab PO Q4H Oxycodone *Ir* [Roxicodone *Ir*] 5 mg PO Q4HPRN PRN PRN Reason: Pain Docusate Sodium [Colace] 1 cap PO BID No Action Refresh Classic 1 drop EACH EYE QIDPRN PRN PRN Reason: Dry Eyes Discharge Instructions/Outpatient Orders: Final Provider Discharge Instructions Location: Determined By Patient BMP - Basic Metabolic - [facility] Time Frame: 3 Days, Location: Determined By Patient
--- NOTE | 2016-11-21 15:43 | IRU Team Meeting ---
IRU Team Meeting - Nursing Vital Signs: Vital Signs - 24 hr 11/20/16 16:00 11/20/16 19:40 11/21/16 08:00 Temperature 97.5 F 98.1 F 97.9 F Pulse Rate 71 76 91 Respiratory Rate 15 16 16 Blood Pressure 152/78 H 139/74 155/81 H Pulse Oximetry 97 97 96 Current Medications: Acetaminophen (Tylenol) 325 mg PO TID [facility] Last Admin: 11/21/16 15:37 Dose: 325 mg Acetaminophen (Tylenol) 500 mg PO DAILY PRN PRN Reason: Discomfort Amlodipine Besylate (Norvasc) 5 mg PO DAILY [facility] Last Admin: 11/21/16 08:57 Dose: 5 mg Artificial Tears (Refresh Classic) 1 drop EACH EYE QID PRN PRN Reason: Dry eyes Artificial Tears (Tears Naturale) 1 drops EACH EYE PRN PRN Aspirin (Ecotrin) 81 mg PO DAILY [facility] Last Admin: 11/21/16 08:57 Dose: 81 mg Atorvastatin Calcium (Lipitor) 10 mg PO HS [facility] Last Admin: 11/20/16 20:43 Dose: 10 mg Bisacodyl (Dulcolax) 10 mg RECTALLY DAILY PRN PRN Reason: Constipation Last Admin: 11/14/16 05:08 Dose: 10 mg Calcitonin [place] (Miacalcin [place]) 1 spray NS DAILY [facility] Last Admin: 11/21/16 08:56 Dose: 1 spray Calcium/Vitamin D (Caltrate + D) 1 tab PO DAILY [facility] Last Admin: 11/21/16 08:57 Dose: 1 tab Enoxaparin Sodium (Lovenox) 40 mg SQ DAILY [facility] Last Admin: 11/21/16 08:56 Dose: 40 mg Finasteride (Proscar) 5 mg PO DAILY [facility] Last Admin: 11/21/16 08:57 Dose: 5 mg Gabapentin (Neurontin) 200 mg PO TID [facility] Last Admin: 11/21/16 15:37 Dose: 200 mg Lidocaine (Lidoderm) 2 patch TOP DAILY [facility] Last Admin: 11/21/16 08:03 Dose: Not Given Lidocaine HCl/Dextrose (Lidoderm Patch Removal) 1 removal TOP 2100 [facility] Last Admin: 11/20/16 20:41 Dose: 1 removal Magnesium Hydroxide (Mom) 30 ml PO DAILY PRN PRN Reason: Constipation Magnesium Oxide (Magox) 400 mg PO BID [facility] Last Admin: 11/21/16 08:57 Dose: 400 mg Omeprazole (Prilosec) 20 mg PO ACB [facility] Last Admin: 11/21/16 06:06 Dose: 20 mg Polyethylene Glycol (Miralax) 17 gm PO BID [facility] Last Admin: 11/21/16 08:57 Dose: Not Given Senna/Docusate Sodium (Senna Plus Tablet) 2 tab PO BID [facility] Last Admin: 11/21/16 08:57 Dose: 2 tab Tramadol HCl (Ultram) 50 mg PO TID [facility] Last Admin: 11/21/16 15:37 Dose: 50 mg Tramadol HCl (Ultram) 50 mg PO DAILY PRN PRN Reason: Pain Last Admin: 11/21/16 03:49 Dose: 50 mg Vitamin E (Vitamin E) 400 unit PO DAILY [facility] Last Admin: 11/21/16 08:57 Dose: 400 unit Comments: I certify that I personally led the interdisciplinary team meeting and agree with comments, barriers and goals indicated. Team meeting was held in the patient's room with the patient and the following family members present: daughter. Mr. Choe is doing extremely well. His pain is managed with Ultram and Tylenol. He is on no narcotics. He is eating and drinking adequately. Has no shortness of breath. Has no chest pain. Bowels are moving adequately. Discussion with patient and daughter today indicate that he is stable and anxious to get home today. - Physical Therapy Comments: Physical therapy indicates that he has met all goals. He is walking 1300 feet with modified independent status. Seems to be stable on his feet. Doing well with transfers as well. - Occupational Therapy Lower Body Dressing Comment: Patient has done well with occupational therapy. Upper body dressing is now independent. Lower body dressing is modified independent. Bathing is standby assist and toileting is modified independent. He has met goals. - Care Plan Anticipated Length of Stay: 0 Anticipated DC Destination: Home Health Service Interventions/Goals: Patient is stable for dismissal home. Arrangements are made with regard to bed railing etc. Prescriptions will be written. Home health is recommended for physical therapy and occupational therapy as well as nursing monitoring.
--- NOTE | 2016-11-21 16:23 | Discharge Summary ---
Discharge Information Date of admission: 11/10/16 10:05 Anticipated date of discharge: 11/21/16 Attending Physician: Jayme Quinn MD Primary care physician: Richi Gibbs MD Consults: 11/10/16 11:25 Physician Consult [CONS] Routine Consulting Provider: Palomo Eid Reason For Exam: Medical Management Ordering Provider has Notified Accounting Advisory Services Manager: No - Discharge Diagnosis Discharge Diagnosis: 1. Acute fractures of right clavicle, right ribs 3 through 6, transverse processes of T6 and T7: multiple trauma 2. Right hemothorax 3. Anorexia 4. 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 Constipation 6. Depression, situational - Laboratory Labs: 11/21/16 05:15 11/21/16 05:15 History of Present Illness HPI: 11/21/16 16:20 Mr. Choe is an 81-year-old white male who was apparently in a grain bin climbing on a ladder. The next thing he knew he awakened sitting in a chair. In the interim he had apparently fallen but did not recall that episode. He had apparently been able to contact his son by cell phone who came to check on him. The patient had a multiple trauma consisting of acute fractures of the right clavicle, right ribs 3 through 6, transverse processes of T6 and T7. Also developed a hemothorax. He was evaluated and treated in [place] and then sent back to the inpatient rehabilitation unit for further therapy. Hospital Course This is a general summary of the patient's hospital course. For more details refer to the complete medical record. Patient was evaluated and admitted to the inpatient rehabilitation unit for an intensive individualized course of therapy involving physical therapy, occupational therapy, 24 hour rehabilitation nursing and medical oversight and management of medical issues. Medical issues addressed were as follows: 1. Pain control. We attempted use of oxycodone which was "too strong" for the patient. He was then managed with Ultram 3 times daily and Tylenol 3 times daily. In addition, we started gabapentin 100 mg 3 times daily increasing this to 20 mg 3 times daily. This seemed to be effective for his pain control. 2. Hemothorax: He was monitored for evidence of infection, respiratory failure, hypoxemia or dyspnea. Repeat chest x-ray was obtained and this showed significant improvement. 3. Anorexia: His appetite improved the longer he was on the unit. 4. Hyponatremia: His sodium was monitored. Sodium was 132 the time of dismissal. It was recommended to the patient that he limit oral intake of fluids. 5. Constipation: He was given bowel management and his constipation improved. 6. Depression: He seemed to have a degree of situational depression. He declined taking medication for this. From a physical therapy standpoint, the patient did extremely well. He was able to ambulate 1300 feet with a cane at the time dismissal. From an occupational therapy standpoint, he improved with grooming from standby assistance to independent functioning, upper body dressing from standby assistance to independent status, lower body dressing from minimal assistance to modified independent status. Tub transfers initially were contact-guard assistance and subsequently were modified independent functioning. Patient was dismissed in improved condition and stable on 11/21/2016. Home health will be arranged. Hospital course: 11/10/16 S/P trauma Rt clavicle fx - cont sling; NWB; F/U with Dr. Chapa at [facility] in 1 week Rt small hemothorax w/ rt rib fx #4-7; F/U with [facility] Trauma Dept in 2 weeks. Push IS. T6-T7 transverse process fx - supportive care. No focal neuro deficits. Hyponatremia - improved to 132. Continue free water restriction and if Na improves on labs in am, will likely lift restriction. Dysphagia - consult speech. lac right parietal - sutures placed 11/09/16 Constipation - PRNs available. Monitor closely for depression. 11/11/16 Lift free water restriction. May have water but with 1500 ml/day restriction. Recheck BMP on 11/13. Pain is a big issue - I increased oxycodone to q4h while awake, but we will need to monitor closely for side effects (ie somnolence, reduced respirations). May need to reduce frequency. I also scheduled Tylenol as a QID medication. Continue IS - will obtain CXR in am to f/u on rib fx and small hemothorax. Constipation - add MiraLAX daily; PRN MOM and dulcolax suppository. 11/12/16 Labs have been fairly stable. Will repeat in AM. Pain is major issue- he does have lidocaine patch applied to site. Add low dose Gabapentin. Pain is not much better on scheduled oxycodone. Will change to Percocet PRN due to severe constipation. Will schedule Tramadol and Decrease APAP to 325mg PO TID. Monitor for side effects. For constipation, change Colace to Senna-S BID. Add Dulcolax PO x 1 now and PRN [place] dosing. May need to add Lactulose for constipation. He needs to follow up with ortho next week. BP has been running high- pt. states this is due to pain. Added Norvasc low dose today- will start Norvasc 5mg tomorrow. 11/14/16 Constipation - nurses will check for impaction. Obtain KUB, concern for ileus. Reduce PRN narcotic use - pt agreeable. Further orders pending KUB - consider lactulose or enema. Likely can remove sutures in the next couple of days. Continue Norvasc for elevated BP - may need new Rx at time of dc. Sodium yesterday was 134. Monitor periodically with recent hyponatremia. If he's still here will need to reschedule ortho appt, which was supposed to be this week. 11/16/16 Remove right parietal sutures today. Constipation improving - continue bowel regimen + Lactulose PRN. New sx consistent with left sciatica. He's already on Gabapentin - if sx worsen we could increase. I discussed his pain with therapy. Repeat labs in am to f/u on anemia, Na level. 11/17/16 I've asked the nurses to remove the sutures today. I discussed depression management with Raul - he does not want to take another pill. He's not interested in seeing a psychiatrist, but he will think about these two things and we will talk more about it after the weekend. Repeat CXR today due to productive cough. Constipation resolved. 11/19/16 Will stop the oxycodone (patient feels it is "too strong") and replace it with a 1 time PRN dose of tramadol and Tylenol to use overnight to go along with the routine 3 times a day dosing of tramadol and Tylenol. 11/20/16 Discussed right leg radicular pain with Dr. Quinn - he will increase gabapentin. I also discussed with therapy and they will investigate for possible sciatic nerve involvement. Constipation has resolved. Continue to monitor for depression - not interested in taking an antidepressant right now. Recheck labs for surveillance. CXR from 11/17/16 personally reviewed - small right effusion but otherwise no acute problems. Time spent with patient: 25 - 35 minutes Discharge Plan - Med Rec/Dispo Referrals/Follow Up: Gilberto Chapa MD [Other] (Dr. Jenny Chapa on 11/29/16 at 3:30 pm for follow-up. . [facility] [address] [place] [address] ) , [facility] [Other] (F/U with [facility] 2 weeks. [facility]Tra[facility] Surgery [address] [place] [address] ) Richi Gibbs MD [Family Provider] - (Dr. Yehuda Gibbs on 11/28/16 at 10: 15 am for Hosp. follow-up. Appt. will be with LAURYN Parker. .) [place] Instructions: Clavicle Fracture (DC) Additional Instructions: Follow up with your physician about depression, especially if you are still feeling down or hopeless after returning home. We talked about starting an antidepressant or talking to a psychiatrist, and this might be worth considering again. Limit your water intake to 2L per day. Your sodium level was slightly low on the day of discharge. Please have your doctor monitor your sodium level. Continue with stool softeners while you are still on pain pills (Tramadol). Your blood pressure was running high and we started Norvasc 5 mg daily. Continue using your incentive spirometer at home to exercise your lungs. Prescriptions: New Acetaminophen [Tylenol] 325 mg PO TID tablet Amlodipine [Norvasc] 5 mg PO DAILY #30 tab Calcitonin Nasal [place] [Miacalcin [place]] 1 spray NS DAILY #1 bottle Calcium 600 + D [Caltrate + D] 1 tab PO DAILY tablet Polyvinyl Alcohol/Povidone O/S [Refresh Classic] 1 drop EACH EYE QID PRN amp PRN Reason: Dry Eyes Gabapentin [Neurontin] 200 mg PO TID #45 capsule Tramadol [Ultram] 50 mg PO Q6H PRN #30 tablet PRN Reason: Pain Acetaminophen [Tylenol] 500 mg PO DAILY PRN tablet PRN Reason: Discomfort Senna + Docusate [Senna Plus Tablet] 1 - 2 tab PO BID tablet Continue Vitamin E 400 unit PO DAILY #0 Magnesium Oxide [Magnesium] 1 tab PO BID Triamcinolone 0.1% Cream 15 G 1 applic TOP QIDPRN Lidocaine 5% Patch [Lidoderm] 2 patch TRANSDERMA DAILY #30 patch Omeprazole 20 mg PO DAILY #90 Atorvastatin Calcium 10 mg PO HS #0 Finasteride [Proscar] 5 mg PO DAILY Aspirin [Ecotrin] 81 mg PO DAILY Discontinued Acetaminophen 2 tab PO Q4H Oxycodone *Ir* [Roxicodone *Ir*] 5 mg PO Q4HPRN PRN PRN Reason: Pain Docusate Sodium [Colace] 1 cap PO BID No Action Refresh Classic 1 drop EACH EYE QIDPRN PRN PRN Reason: Dry Eyes Discharge Instructions/Outpatient Orders: Final Provider Discharge Instructions Location: Determined By Patient BMP - Basic Metabolic - [facility] Time Frame: 3 Days, Location: Determined By Patient
== END 2016-11-21 16:50 | disposition home health service (06) | DRG 560 ==
PROVIDERS: ADMIT Internal Medicine; ATTEND Internal Medicine